=== PATIENT | female | born 1985 | race Caucasian/White ===

== ENCOUNTER 2018-01-14 08:00 | Outpatient (CLI) | payer MEDICAID | END 2018-01-14 08:01 | LOC: EDSEX 08:00 → LAB.R 08:00 | PROVIDERS: ATTEND Nurse Practitioner Obstetrics & Gynecology | DX: Z36.85 Encounter for antenatal screening for Streptococcus B (principal) | CPT/HCPCS: 87081 ==

== ENCOUNTER 2018-02-13 07:58 | Inpatient (IN) | payer MEDICAID ==
[2018-02-13] MEDS ORDERED: ONDANSETRON 4 MG/2 ML VIAL IVP PRN (08:08)
[2018-02-13] MEDS ORDERED: SODIUM CHLORIDE FLUSH 0.9% 10 ML SYRINGE IVP PRN (08:08)
[2018-02-13] MEDS ORDERED: fentaNYL 100 MCG/2 ML VIAL IVP PRN (08:08)
--- NOTE | 2018-02-13 08:33 | HISTORY & PHYSICAL EXAMINATION ---
Admit History - Instructions Nenana/Slash: -Left hand click circles element as positive or present. -Right hand click slashes element as negative or not present. - Visit Reason Visit Reason: Contractions, Membranes rupture - : 9 Parity: 8 Premature: 0 Ectopic: 0 : 0 Care: positive: [facility] Risk/History: positive: None Complications This : positive: None Smoking Status: Never smoker - Mother's Labs GBS: positive: Group B Step Negative Physical - Abdominal Exam Vital Signs: Temp Pulse Resp BP Pulse Ox 36.8 C 97 18 126/81 H 98 02/13/18 08:16 02/13/18 08:16 02/13/18 08:16 02/13/18 08:16 02/13/18 08:16 Contraction Frequency (min/apart): 2.5-4 Contraction Intensity: positive: Strong Uterine Resting Tone: positive: Soft - Monitoring Heart Rate Baseline: 130 Strip Review: positive: Category II - Presentation Presentation: positive: Vertex - Vaginal Exam Membranes: positive: Membranes ruptured Dilation (in cm): 6 Effacement (%): 90 Station: positive: 0 Cervical Position: positive: Midposition - Speculum Exam Speculum Exam Performed: positive: No Plan for Labor - Plan For Labor I expect patient to be DC'd or transferred within 96 hours.: Yes Plan for Labor: HPI: This 32yo presents with contractions beginning at 0600 02/13/2018 and SROM 0640 a moderate amount of meconium stained fluid. She reports +FM. Coping well with contractions. Dating criteria: Known LMP 12/2017 29wk U/S agrees with LMP dating OB History: She is unable to provide any detailed information about her other pregnancies other than she was 9 months and there were no complications. Labs: Limited labs CBC performed and WNL 2 hour GTT WNL U/S FAS WNL - no gross abnormalities. No previa. Meds: Daily PNV Allergies: NKDA GBS negative A: 32yo @ 40.2wks gestation by L=29 wk U/S GBS negative Limited care P: Continuous monitoring Plans unmedicated vaginal delivery Meconium stained amniotic fluid - Dr. Torres, coroner technician network systems analyst aware and made introduction to patient and . Continue expectant management Anticipate spontaneous vaginal delivery.
[2018-02-13 08:38] LABS: BASOPHILS % (AUTO) 0.3 %; EOSINOPHILS # (AUTO) 0.1 10^3/uL (0.0-0.7); EOSINOPHILS % (AUTO) 1.1 %; HGB - HEMOGLOBIN 12.4 g/dL (12.0-16.0); LYMPHOCYTES % (AUTO) 24.9 %; MEAN CORPUSCULAR HEMOGLOBIN 29.5 pg (27.0-31.0); MEAN CORPUSCULAR HGB CONC 33.7 g/dL (32.0-36.0); MEAN CORPUSCULAR VOLUME 87.7 fL (81.0-99.0); MEAN PLATELET VOLUME 9.8 fL (7.9-10.8); MONOCYTES # (AUTO) 0.4 10^3/uL (0.0-1.0); MONOCYTES % (AUTO) 5.2 %; NEUTROPHILS # (AUTO) 5.6 10^3/uL (1.5-6.6); NEUTROPHILS % (AUTO) 68.5 %; PLT - PLATELET COUNT 259 10^3/uL (130-450); RED BLOOD COUNT 4.19 10^6/uL (4.20-5.40); RED CELL DISTRIBUTION WIDTH 13.4 % (12.0-15.0); WHITE BLOOD COUNT 8.2 x10^3/uL (4.8-10.8)
[2018-02-13] MEDS: LACTATED RINGERS 1,000 ML IV ONE ×2 (08:48→09:49)
[2018-02-13] MEDS ORDERED: OXYTOCIN/SODIUM CHLORIDE 500 ML IV ONE (09:17)
[2018-02-13] MEDS ORDERED: OXYTOCIN/SODIUM CHLORIDE 250 ML IV ONE (10:14)
[2018-02-13] MEDS ORDERED: HYDROCORTISONE/PRAMOXINE 10 GM PR PRN (10:14)
[2018-02-13] MEDS ORDERED: WITCH HAZEL/GLYCERIN 1 EACH MED..PAD TOP PRN (10:14)
--- NOTE | 2018-02-13 10:19 | DELIVERY NOTE ---
Delivery Note - Labor Labor: positive: Spontaneous - Delivery Method Delivery Method: positive: Spontaneous vaginal delivery - Presentation Presentation: positive: Vertex, JAHAIRA - left occiput anterior - Nuchal Cord Nuchal Cord: positive: None - Amniotic Fluid Description Amniotic Fluid Description: positive: Moderate meconium - Episiotomy Type Episiotomy Type: positive: None - Laceration Laceration: positive: None - Delivery Outcome Delivery Outcome: positive: Livebirth - [place]: positive: Placed in direct skin contact with mother, Bulb syringe, Stimulated, [place] used [place] sex: positive: Female - Cord Cord: positive: 3 vessels - Placenta Placenta: positive: Intact, Spontaneous - Estimated Blood Loss Estimated Blood Loss (in cc): 200 - Post Delivery Events Post Delivery Events: positive: No post delivery events - Delivery Comments (Free Text/Narrative) Delivery Comments (Free Text/Narrative): Labor: This 32yo @ 40.2 wks gestation by L=29wk U/S presented at approximately 0800 in active labor. Reported contractions beginning at 2017 at 0600 followed by SROM @ 0640 a moderate amount of meconium stained fluid. Cervix was 6/90/0, vertex, soft. Gross leakage of moderate meconium- stained amniotic fluid. FHR pattern demonstrated baseline 130 in a category II pattern pattern. Recurrent early deceleration with minimal to moderate variability. Overall reassuring. Patient progressed to c/c/+1 with spontaneous urge to push at 0935. Normal labor course. : Normal of viable female . No nuchal. 's 9 and 9 at 1 and 5 minutes respectively at 0951 on 02/13/2018. The was placed on maternal abdomen, stimulated, dried, and placed skin to skin. Vigorous cry. The umbilical cord was allowed to stop pulsating at which time it was doubly clamped and cut by FOB. 3VC. Cord blood was obtained. Pitocin administered via IV for hemostasis. Placenta delivered spontaneously and intact at 0956 and was found to be morphologically intact. Trailing membranes grasped with ring forceps and gently guided through vaginal introitus. Both placenta and amniotic membranes were noted to be moderately meconium stained. EBL 200mL. Dr. Torres, personal computer specialist pediatrican present for delivery secondary to meconium. Fourth stage: Uterine fundus firm and there is no excessive bleeding. The perinuem, vagina, and cervix were inspected and found to be intact. initiated. Family bonding well. Both mother and baby were left in stable condition.
[2018-02-13] MEDS: ACETAMINOPHEN 500 MG TABLET PO SCH (10:56)
[2018-02-13] MEDS: IBUPROFEN 800 MG TABLET PO SCH (10:57)
[2018-02-13] MEDS ORDERED: LACTATED RINGERS 1,000 ML IV SCH (11:00)
[2018-02-13] MEDS: SODIUM CHLORIDE FLUSH 0.9% 10 ML SYRINGE IVP SCH (11:55)
[2018-02-14] MEDS: IBUPROFEN 800 MG TABLET PO SCH ×2 (04:07→10:51)
[2018-02-14] MEDS: ACETAMINOPHEN 500 MG TABLET PO SCH ×2 (04:08→16:49)
[2018-02-14] MEDS: SODIUM CHLORIDE FLUSH 0.9% 10 ML SYRINGE IVP SCH (04:08)
[2018-02-14] MEDS: DOCUSATE SODIUM 100 MG CAPSULE PO SCH ×2 (04:08→10:30)
[2018-02-14 13:02] LABS: HEPATITIS C ANTIBODY NON-REACTIVE (NON-REACTIVE)
--- NOTE | 2018-02-14 13:15 | Discharge Plan ---
Discharge Plan Disposition: 01 Home, Self Care Condition: Good Diet: Regular Activity Restrictions: No Restrictions Shower Restrictions: No Driving Restrictions: No Weight Bearing: Full Weight No Smoking: If you smoke, Please STOP! Call for help. Follow-up with: Stcaia Kenney CNM, ARNP [Provider Admit Priv/Credential] -
--- NOTE | 2018-02-14 13:18 | PROVIDER PROGRESS NOTE ---
Subjective - Subjective Subjective: S: Bonding well with baby. without difficulty. Reports some lower back discomfort last evening and early this morning but resolved with tylenol and ibuprofen. Bleeding minimal. supportive at the bedside. O: Heart RRR w/o M/G/R, lungs CTAB, abdomen soft and nontender with fundus firm at U-1. Bilateral LE's no edema. Perineum intact. A: 32yo -->P9 PPD#1 s/p TSVD of viable female over intact perineum P: Reviewed self care and warning s/sx. Pt will be discharged home today with Rx for 800mg ibuprofen 1 tab PO q 8 hrs PRN pain #60 with 1 refill. She plans to follow up with myself in 3 weeks at [facility] for routine visit. Pt and verbalized understanding and agree to above plan. They deny further questions or concerns at this time. Objective - Vital Signs/Intake & Output Vital Signs: Vital Signs x48h Temp Pulse Resp BP Pulse Ox 02/14/18 08:36 37.2 C 75 17 101/54 L 98 Intake & Output: Intake & Output 02/11/18 02/12/18 02/13/18 02/14/18 23:59 23:59 23:59 23:59 Intake Total 1000 Output Total 1090 Balance -90 - Lab Results Fish Bones: 02/13/18 08:08 Other Labs: Lab Results x24hrs 02/13/18 02/13/18 Range/Units 09:33 09:33 Hep Bs Immunity Index <5 L (> OR = 10) mIU/mL Hepatitis C Antibody NON-REACTIVE (NON-REACTIVE) Hep C Ab Signal/Cutoff 0.00 (<1.00)
[2018-02-14 14:31] VITALS: BP 105/52
[2018-02-14 14:32] LABS: HIV AG/AB 4TH GEN NON-REACTIVE (NON-REACTIVE)
== END 2018-02-14 16:55 | disposition home or self-care (01) | DRG 775 ==
LOC: WFO 07:58 → FBP 07:59 → WFO 08:07 → FBP 08:08 → OBS 16:18
PROVIDERS: ADMIT Nurse Practitioner Obstetrics & Gynecology; ATTEND Nurse Practitioner Obstetrics & Gynecology
PROC: 10E0XZZ Delivery of Products of Conception, External Approach (ICD-10-PCS; principal; 2018-02-13)
DX: O42.02 Full-term premature rupture of membranes, onset of labor within 24 hours of rupture (principal); O77.0 Labor and delivery complicated by meconium in amniotic fluid; Z3A.40 40 weeks gestation of pregnancy; Z37.0 Single live birth
CPT/HCPCS: 85025; 86317; 86762; 86780; 86803; 86850; 86900; 86901; 87389; 99211

== ENCOUNTER 2018-02-20 17:12 | Emergency (ER) | payer MEDICAID ==
--- NOTE | 2018-02-20 17:32 | ED Physician Documentation ---
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 She says that during the delivery she started to feel some right upper quadrant pain and swelling which is been persistent. She took the baby in for postop check today and they noted that the mom was jaundiced and she was referred here for further evaluation and treatment. She has persistent mild right upper quadrant pain and swelling. She has no history of abdominal surgeries. She denies fevers or vomiting.) Review of Systems Ten Systems: 10 systems reviewed and negative Constitutional: denies: Fever, Chills Cardiac: denies: Chest pain / pressure, Palpitations Respiratory: denies: Dyspnea, Cough PD PAST MEDICAL HISTORY - Past Medical History Past Medical History: No - Allergies Allergies/Adverse Reactions: Allergies Allergy/AdvReac Type Severity Reaction Status Date / Time No Known Drug Allergies Allergy Verified 02/20/18 17:40 - Living Situation Living Situation: reports: With family - Social History Smoking Status: Never smoker Does the pt have substance abuse?: No PD ED PE NORMAL - Vitals Vital signs reviewed: Yes - General General: Alert and oriented X 3, No acute distress - HEENT HEENT: PERRL (Quite icteric and jaundiced) - Neck Neck: Supple, no meningeal sign - Cardiac Cardiac: RRR, No murmur - Respiratory Respiratory: No respiratory distress, Clear bilaterally - Abdomen Abdomen: Normal bowel sounds, Soft, Other (Mild right upper quadrant tenderness without surgical signs) - Back Back: No CVA TTP, No spinal TTP - Derm Derm: Normal color, Warm and dry - Extremities Extremities: No edema, No calf tenderness / cord - Neuro Neuro: Alert and oriented X 3, Normal speech Results - Vitals Vitals: Vital Signs - 24 hr 02/20/18 17:19 Temperature 36.4 C L Heart Rate 78 Respiratory 16 Rate Blood Pressure 136/96 H O2 Saturation 98 Oxygen O2 Source Room air - Labs Labs: Laboratory Tests 02/20/18 02/20/18 02/20/18 17:25 17:25 17:25 WBC 7.0 RBC 4.11 L Hgb 12.2 Hct 35.8 L MCV 87.1 MCH 29.6 MCHC 33.9 RDW 15.0 Plt Count 504 H MPV 8.2 Neut # (Auto) 3.7 Lymph # (Auto) 2.4 [place] # (Auto) 0.4 Eos # (Auto) 0.4 Baso # (Auto) 0.1 Absolute Nucleated RBC 0.00 Nucleated RBC % 0.0 PT 10.7 INR 0.9 Fibrinogen 565 H Sodium 136 Potassium 3.8 Chloride 104 Carbon Dioxide 23 Anion Gap 9.0 BUN 9 Creatinine 0.3 L Estimated GFR (MDRD) 259 Glucose 100 Uric Acid 4.4 Calcium 8.4 L Total Bilirubin 7.6 H Direct Bilirubin 4.7 H Indirect Bilirubin 2.9 AST 87 H ALT 152 H Alkaline Phosphatase 827 H Lactate Dehydrogenase Total Protein 7.0 Albumin 2.8 L Globulin 4.2 Albumin/Globulin Ratio 0.7 L Lipase 18 L Acetaminophen < 10 L 02/20/18 17:25 WBC RBC Hgb Hct MCV MCH MCHC RDW Plt Count MPV Neut # (Auto) Lymph # (Auto) [place] # (Auto) Eos # (Auto) Baso # (Auto) Absolute Nucleated RBC Nucleated RBC % PT INR Fibrinogen Sodium Potassium Chloride Carbon Dioxide Anion Gap BUN Creatinine Estimated GFR (MDRD) Glucose Uric Acid Calcium Total Bilirubin Direct Bilirubin Indirect Bilirubin AST ALT Alkaline Phosphatase Lactate Dehydrogenase 177 Total Protein Albumin Globulin Albumin/Globulin Ratio Lipase Acetaminophen PD MEDICAL DECISION MAKING - ED course ED course: She says she has not been taking much Tylenol/acetaminophen, only naproxen which was prescribed to her. HELLP is considered but inconsistent with the labs. She does have evidence of cholestasis and obstruction, probably due to choledocholithiasis given 12 mm common bile duct even though this is not definitively seen on ultrasound she does have mild evidence of cholecystitis and multiple gallstones. Spoke with Dr. Davies, the surgeon here who recommended transfer given the bili that high to a facility capable of ERCP. I ordered Unasyn, she was having some itching but no overt findings of an allergic reaction, it was stopped about care home through and I ordered Rocephin instead. Note she is breast-feeding. Spoke with Dr Doan On-call GI in [place] who will consult, defers to surgery for the primary admission, they were paged at 8:[address] Carmen Lima to [facility] direct admit surgery service at 8:43 PM and cobras were completed. - Sepsis Event Vital Signs: Vital Signs - 24 hr 02/20/18 17:19 Temperature 36.4 C L Heart Rate 78 Respiratory 16 Rate Blood Pressure 136/96 H O2 Saturation 98 Oxygen O2 Source Room air Departure - Departure Disposition: 02 Transfer Acute Care Hosp Clinical Impression: Biliary obstruction, Cholecystitis Condition: Stable
[2018-02-20 17:34] LABS: BASOPHILS # (AUTO) 0.1 10^3/uL (0.0-0.1); BASOPHILS % (AUTO) 1.1 %; EOSINOPHILS # (AUTO) 0.4 10^3/uL (0.0-0.7); EOSINOPHILS % (AUTO) 5.9 %; HGB - HEMOGLOBIN 12.2 g/dL (12.0-16.0); LYMPHOCYTES # (AUTO) 2.4 10^3/uL (1.5-3.5); LYMPHOCYTES % (AUTO) 34.3 %; MEAN CORPUSCULAR HEMOGLOBIN 29.6 pg (27.0-31.0); MEAN CORPUSCULAR HGB CONC 33.9 g/dL (32.0-36.0); MEAN CORPUSCULAR VOLUME 87.1 fL (81.0-99.0); MEAN PLATELET VOLUME 8.2 fL (7.9-10.8); MONOCYTES # (AUTO) 0.4 10^3/uL (0.0-1.0); MONOCYTES % (AUTO) 5.4 %; NEUTROPHILS # (AUTO) 3.7 10^3/uL (1.5-6.6); NEUTROPHILS % (AUTO) 53.3 %; PLT - PLATELET COUNT 504 10^3/uL (130-450); RED BLOOD COUNT 4.11 10^6/uL (4.20-5.40)
[2018-02-20 17:43] LABS: INR 0.9 (0.8-1.2); PT - PROTHROMBIN TIME 10.7 secs (9.9-12.6)
[2018-02-20 17:55] LABS: ACETAMINOPHEN < 10 ug/mL (10-30); ALBUMIN 2.8 g/dL (3.2-5.5); ALBUMIN/GLOBULIN RATIO 0.7 (1.0-2.2); ALKALINE PHOSPHATASE 827 IU/L (42-121); ALT ALANINE AMINOTRANSFERASE 152 IU/L (10-60); AST ASPARTATE AMINOTRANSFERASE 87 IU/L (10-42); BILIRUBIN,DIRECT 4.7 mg/dL (0.1-0.5); BILIRUBIN,INDIRECT 2.9 mg/dL; BILIRUBIN,TOTAL 7.6 mg/dL (0.2-1.0); BUN - BLOOD UREA NITROGEN 9 mg/dL (6-20); CALCIUM 8.4 mg/dL (8.5-10.3); CARBON DIOXIDE - CO2 23 mmol/L (21-32); CHLORIDE 104 mmol/L (101-111); CREATININE 0.3 mg/dL (0.4-1.0); GFR - MDRD 259 (>89); GLUCOSE 100 mg/dL (70-100); LIPASE 18 U/L (22-51); SODIUM 136 mmol/L (135-145); URIC ACID 4.4 mg/dL (2.6-7.2)
--- NOTE | 2018-02-20 18:25 | Ultrasound Report ---
Procedure Date: 02/20/2018 Accession Number: [id number] / [id number] Procedure: US - Abdomen Limited CPT Code: FULL RESULT: EXAM: ABDOMEN ULTRASOUND LIMITED, RUQ EXAM DATE: 02/20/2018 06:15 PM. CLINICAL HISTORY: RUQ pain, jaundice. COMPARISON: None. TECHNIQUE: Real-time scanning was performed with static images obtained. FINDINGS: Liver: The liver is mildly increased in echogenicity with no focal lesions. 15.1 cm. Main portal vein flow: Hepatopetal. Gallbladder: Multiple stones in the gallbladder. The gallbladder wall is upper limits of normal in thickness measuring 3 mm. Patient is on pain medication and the presence of a sonographic Roberts sign could not be reliably assessed. Biliary System: CBD measures 12 mm. Intrahepatic and extra hepatic biliary ductal dilatation. Other: The right kidney is unremarkable. IMPRESSION: 1. Acute cholecystitis. 2. Hepatic parenchymal disease (likely fatty liver). No focal lesions. RADIA
[2018-02-20] MEDS ORDERED: AMPICILLIN/SULBACTAM 3 GM in SODIUM CHLORIDE 0.9% MINIBAG 100 ML IV STA (18:27)
[2018-02-20] MEDS ORDERED: cefTRIAXone 1 GM in SODIUM CHLORIDE 0.9% MINIBAG 100 ML IV STA (19:20)
[2018-02-20 20:45] VITALS: BP 113/78
[2018-02-20 20:49] LABS: GLUCOSE, URINE (UA) NEGATIVE (NEGATIVE); KETONES,URINE (UA) NEGATIVE (NEGATIVE); LEUKOCYTE ESTERASE, URINE MODERATE (NEGATIVE); NITRITE,URINE NEGATIVE (NEGATIVE); OCCULT BLOOD,URINE LARGE (NEGATIVE); PROTEIN,URINE NEGATIVE (NEGATIVE); UROBILINOGEN,URINE 0.2 (NORMAL) E.U./dL (NORMAL)
[2018-02-20 20:58] LABS: BILIRUBIN,URINE MODERATE (NEGATIVE); CLARITY,URINE CLEAR (CLEAR); ICTOTEST,URINE POSITIVE
[2018-02-20 20:59] LABS: SQUAMOUS EPITHELIAL CELL,UR RARE Squamous (<= Few); WBC CLUMPS,URINE PRESENT
[2018-02-20 21:00] LABS: BACTERIA,URINE Few /HPF (None Seen)
[2018-02-21 15:21] LABS: HEPATITIS A IGM NON-REACTIVE (NON-REACTIVE); HEPATITIS B CORE ANTIBODY IGM NON-REACTIVE (NON-REACTIVE); HEPATITIS B SURFACE ANTIGEN NON-REACTIVE (NON-REACTIVE); HEPATITIS C ANTIBODY NON-REACTIVE (NON-REACTIVE)
== END 2018-02-20 22:05 | disposition short-term general hospital (02) ==
LOC: ED 17:12
DX: O99.63 Diseases of the digestive system complicating the puerperium (principal); O26.63 Liver and biliary tract disorders in the puerperium; K76.89 Other specified diseases of liver; K80.01 Calculus of gallbladder with acute cholecystitis with obstruction
CPT/HCPCS: 36415; 76705; 80053; 80074; 80307; 81001; 81003; 82247; 82248; 83615; 83690; 84550; 85025; 85384; 85610; 87086; 96365; 96368; 99283; 99285

== ENCOUNTER 2018-04-17 08:27 | Outpatient (CLI) | payer MEDICAID ==
[2018-04-17 09:00] LABS: BASOPHILS # (AUTO) 0.1 10^3/uL (0.0-0.1); EOSINOPHILS # (AUTO) 0.3 10^3/uL (0.0-0.7); EOSINOPHILS % (AUTO) 5.8 %; HGB - HEMOGLOBIN 10.8 g/dL (12.0-16.0); LYMPHOCYTES # (AUTO) 1.9 10^3/uL (1.5-3.5); LYMPHOCYTES % (AUTO) 35.5 %; MEAN CORPUSCULAR HEMOGLOBIN 27.4 pg (27.0-31.0); MEAN CORPUSCULAR HGB CONC 33.9 g/dL (32.0-36.0); MEAN CORPUSCULAR VOLUME 80.7 fL (81.0-99.0); MONOCYTES # (AUTO) 0.3 10^3/uL (0.0-1.0); MONOCYTES % (AUTO) 5.2 %; NEUTROPHILS # (AUTO) 2.8 10^3/uL (1.5-6.6); NEUTROPHILS % (AUTO) 52.5 %; PLT - PLATELET COUNT 432 10^3/uL (130-450); RED BLOOD COUNT 3.94 10^6/uL (4.20-5.40); RED CELL DISTRIBUTION WIDTH 14.9 % (12.0-15.0); WHITE BLOOD COUNT 5.4 x10^3/uL (4.8-10.8)
[2018-04-17 09:19] LABS: ALBUMIN/GLOBULIN RATIO 1.1 (1.0-2.2); BILIRUBIN,TOTAL 0.6 mg/dL (0.2-1.0); CALCIUM 8.8 mg/dL (8.5-10.3); CREATININE 0.6 mg/dL (0.4-1.0); TOTAL PROTEIN 7.6 g/dL (6.7-8.2)
== END 2018-04-17 08:28 | disposition home or self-care (01) ==
LOC: LAB 08:27
PROVIDERS: ATTEND Nurse Practitioner Obstetrics & Gynecology
DX: K76.9 Liver disease, unspecified (principal); Z13.29 Encounter for screening for other suspected endocrine disorder; Z13.0 Encounter for screening for diseases of the blood and blood-forming organs and certain disorders involving the immune mechanism
CPT/HCPCS: 36415; 80053; 84443; 85025

== ENCOUNTER 2018-04-25 12:28 | Outpatient (CLI) | payer MEDICAID | END 2018-04-25 12:29 | disposition home or self-care (01) | LOC: LAB 12:28 | PROVIDERS: ATTEND Nurse Practitioner Obstetrics & Gynecology | DX: K72.00 Acute and subacute hepatic failure without coma (principal) | CPT/HCPCS: 36415; 82239 ==

== ENCOUNTER 2018-07-31 10:50 | Emergency (ER) | payer SELFPAY ==
[2018-07-31 11:38] LABS: BASOPHILS % (AUTO) 0.2 %; MEAN CORPUSCULAR HEMOGLOBIN 27.4 pg (27.0-31.0); MEAN CORPUSCULAR HGB CONC 33.4 g/dL (32.0-36.0); MEAN CORPUSCULAR VOLUME 81.9 fL (81.0-99.0); MEAN PLATELET VOLUME 8.3 fL (7.9-10.8); MONOCYTES # (AUTO) 1.2 10^3/uL (0.0-1.0); MONOCYTES % (AUTO) 6.9 %; NEUTROPHILS # (AUTO) 14.8 10^3/uL (1.5-6.6); NEUTROPHILS % (AUTO) 86.9 %; PLT - PLATELET COUNT 298 10^3/uL (130-450); RED BLOOD COUNT 4.36 10^6/uL (4.20-5.40); RED CELL DISTRIBUTION WIDTH 15.1 % (12.0-15.0)
[2018-07-31 11:49] LABS: ALBUMIN 4.1 g/dL (3.2-5.5); ALBUMIN/GLOBULIN RATIO 1.2 (1.0-2.2); BILIRUBIN,TOTAL 0.8 mg/dL (0.2-1.0); CALCIUM 8.4 mg/dL (8.5-10.3); CREATININE 0.5 mg/dL (0.4-1.0); TOTAL PROTEIN 7.6 g/dL (6.7-8.2)
[2018-07-31 12:02] LABS: BILIRUBIN,URINE NEGATIVE (NEGATIVE); GLUCOSE, URINE (UA) NEGATIVE (NEGATIVE); KETONES,URINE (UA) >=80 mg/dL (NEGATIVE); LEUKOCYTE ESTERASE, URINE NEGATIVE (NEGATIVE); NITRITE,URINE NEGATIVE (NEGATIVE); OCCULT BLOOD,URINE NEGATIVE (NEGATIVE); PROTEIN,URINE NEGATIVE (NEGATIVE); UROBILINOGEN,URINE 0.2 (NORMAL) E.U./dL (NORMAL)
[2018-07-31 12:04] LABS: CLARITY,URINE CLEAR (CLEAR)
[2018-07-31 12:05] LABS: HCG UR QUAL NEGATIVE
[2018-07-31] MEDS ORDERED: ONDANSETRON 4 MG/2 ML VIAL IVP STA (12:34)
[2018-07-31] MEDS ORDERED: SODIUM CHLORIDE 0.9% 1,000 ML IV ONE (12:34)
[2018-07-31] MEDS ORDERED: HYDROmorphone 1 MG/ML CARPUJECT IVP STA (12:34)
[2018-07-31] MEDS ORDERED: PIPERACILLIN/TAZOBACTAM 3.375 GM in SODIUM CHLORIDE 0.9% MINIBAG 100 ML IV STA (12:34)
--- NOTE | 2018-07-31 12:37 | ED Physician Documentation ---
History of Present Illness - Stated complaint Stated Complaint: ABD PX - Chief complaint Chief Complaint: Abd Pain - Additonal information Additional information: hx from pt via transloator tablet and from EMR 33 female denies preg last Feb she was seen for jaundice and had cholecholithiasis and was tranfereed to Prov and had ERCP but still has her gallbladder to ED today with 2 days of RUQ pain, chils NV no diarrhea no urinary sx Review of Systems Constitutional: denies: Fever Cardiac: denies: Chest pain / pressure Respiratory: denies: Dyspnea GI: reports: Abdominal Pain, Nausea, Vomiting. denies: Diarrhea : denies: Now EGA Musculoskeletal: denies: Back pain Endocrine: denies: Easy bruising / bleeding Immunocompromised: denies: Immunocompromised PD PAST MEDICAL HISTORY - Past Medical History Past Medical History: No Cardiovascular: None Respiratory: None HEENT: None - Past Surgical History Past Surgical History: No - Present Medications Home Medications: Ambulatory Orders Medication Instructions Recorded Confirmed Amox/Clav 875/125 [Augmentin] 1 each PO Q12H #20 tablet 07/31/18 Ibuprofen [Motrin] 400 mg PO Q6H #30 tablet 07/31/18 Ondansetron Odt [Zofran] 4 mg TL Q6H PRN #10 tablet 07/31/18 - Allergies Allergies/Adverse Reactions: Allergies Allergy/AdvReac Type Severity Reaction Status Date / Time No Known Drug Allergies Allergy Verified 07/31/18 11:12 - Social History Does the pt smoke?: No Smoking Status: Never smoker Does the pt drink ETOH?: No Does the pt have substance abuse?: No - Immunizations Immunizations are current?: No Immunizations: TDAP >10years/unknown - POLST Patient has POLST: No PD ED PE NORMAL - Vitals Vital signs reviewed: Yes - Cardiac Cardiac: RRR - Abdomen Abdomen: Soft - Derm Derm: Normal color - Neuro Neuro: Alert and oriented X 3 Results - Vitals Vitals: Vital Signs - 24 hr 07/31/18 07/31/18 07/31/18 10:59 12:10 13:11 Temperature 36.7 C 36.7 C Heart Rate 104 H 95 Respiratory 16 16 Rate Blood Pressure 106/72 103/64 110/67 O2 Saturation 99 98 96 07/31/18 07/31/18 16:11 16:27 Temperature 36.7 C 36.9 C Heart Rate 99 95 Respiratory 12 16 Rate Blood Pressure 97/58 L 91/64 O2 Saturation 97 97 Oxygen O2 Source Room air - Labs Labs: Laboratory Tests 07/31/18 07/31/18 07/31/18 11:31 11:31 11:45 WBC 17.0 H RBC 4.36 Hgb 12.0 Hct 35.8 L MCV 81.9 MCH 27.4 MCHC 33.4 RDW 15.1 H Plt Count 298 MPV 8.3 Neut # (Auto) 14.8 H Lymph # (Auto) 1.0 L [place] # (Auto) 1.2 H Eos # (Auto) 0.0 Baso # (Auto) 0.0 Absolute Nucleated RBC 0.00 Nucleated RBC % 0.0 Sodium 125 L Potassium 3.5 Chloride 93 L Carbon Dioxide 23 Anion Gap 9.0 BUN 5 L Creatinine 0.5 Estimated GFR (MDRD) 143 Glucose 114 H Calcium 8.4 L Total Bilirubin 0.8 AST 30 ALT 22 Alkaline Phosphatase 114 Total Protein 7.6 Albumin 4.1 Globulin 3.5 Albumin/Globulin Ratio 1.2 Lipase 22 Urine Color YELLOW Urine Clarity CLEAR Urine pH 6.0 Ur Specific [place] <=1.005 Urine Protein NEGATIVE Urine Glucose (UA) NEGATIVE Urine Ketones >=80 H Urine Occult Blood NEGATIVE Urine Nitrite NEGATIVE Urine Bilirubin NEGATIVE Urine Urobilinogen 0.2 (NORMAL) Ur Leukocyte Esterase NEGATIVE Ur Microscopic Review NOT INDICATED Urine Culture Comments NOT INDICATED Urine HCG, Qual 07/31/18 11:45 WBC RBC Hgb Hct MCV MCH MCHC RDW Plt Count MPV Neut # (Auto) Lymph # (Auto) [place] # (Auto) Eos # (Auto) Baso # (Auto) Absolute Nucleated RBC Nucleated RBC % Sodium Potassium Chloride Carbon Dioxide Anion Gap BUN Creatinine Estimated GFR (MDRD) Glucose Calcium Total Bilirubin AST ALT Alkaline Phosphatase Total Protein Albumin Globulin Albumin/Globulin Ratio Lipase Urine Color Urine Clarity Urine pH Ur Specific [place] <=1.005 Urine Protein Urine Glucose (UA) Urine Ketones Urine Occult Blood Urine Nitrite Urine Bilirubin Urine Urobilinogen Ur Leukocyte Esterase Ur Microscopic Review Urine Culture Comments Urine HCG, Qual NEGATIVE - Rads (name of study) ruq sono Radiology: See rad report (verbal from rad acute antonio) PD MEDICAL DECISION MAKING - ED course ED course: ruq pain X 2 days known gallstones elev WBC nl bili this time tachy sono + acute antonio gave padmajan will admit called surgeon at 1410 but pt is concerned about insurance and afrraid of surgery bith Dr Ordaz and myself spoe to her (via field technical support consultant) about surgery antibiotics and insurance also met with the financial team who reassured her there wwere insurnace options despite all our best efforts to convince her to stay for IV ab and surgery she declines she wants to go home on ab using translating service I carefully explained that she might not do well at home and that she should come back if worse in any way - that we were not mad and would welcome the chance to continue caring for her pt signed out AMA using translating service to be sure she understood risks of leaving Departure - Departure Disposition: 07 Against Medical Advice Clinical Impression: Acute cholecystitis, Hyponatremia Condition: Good Instructions: ED Gallbladder Infec Conf Follow-Up: Ruperto Ordaz MD [Provider Admit Priv/Credential] - Prescriptions: Amox/Clav 875/125 [Augmentin] 1 each PO Q12H #20 tablet Ibuprofen [Motrin] 400 mg PO Q6H #30 tablet Ondansetron Odt [Zofran] 4 mg TL Q6H PRN #10 tablet PRN Reason: Nausea / Vomiting Print Language: Swedish Comments: You have gallstones and a gallbladder infection This is a serious problem You need antibiotics And you should have surgery to remove the gallbladder Without this treatment you may get worse - may develop sepsis or have another stone in the bile duct requiring transfer to a larger hospital. The surgeon and the ER doctor and the financial team all met with you to try and help but you still wanted to go home So I have prescribed medication for pain and nausea and antibiotics. You should stay on a low fat diet. Return if worse in any way - we are always open and want to help you Forms: Activity restrictions Discharge Date/Time: 07/31/18 16:27
--- NOTE | 2018-07-31 14:01 | Ultrasound Report ---
Reason: ruq pain hx gallstones ? acute antonio Procedure Date: 07/31/2018 Accession Number: [id number] / [id number] Procedure: US - Abdomen Limited CPT Code: FULL RESULT: EXAM: ABDOMEN ULTRASOUND LIMITED, RUQ EXAM DATE: 07/31/2018 01:52 PM. CLINICAL HISTORY: Ruq pain. History of gallstones, ? acute cholecystitis. COMPARISON: Abdomen limited 02/20/2018 5:38 PM. TECHNIQUE: Real-time scanning was performed with static images obtained. FINDINGS: Liver: Relatively preserved parenchymal echotexture with interval resolution of previously seen intrahepatic biliary ductal dilation. Right lobe of the liver measures at least 15.2 cm. Main portal vein flow: Hepatopetal. Gallbladder: Despite premedication, the patient is significantly tender over the gallbladder. There is new marked gallbladder wall thickening to 0.9 cm with an irregular sonographic appearance of the gallbladder wall. Cholelithiasis is similar to prior. Biliary System: Extrahepatic bile ductal dilation persists with the common hepatic duct measuring 5 mm and the common bile duct measuring 8 mm. Other: None. IMPRESSION: Acute cholecystitis. Extrahepatic biliary ductal dilation. Previously seen intrahepatic biliary ductal dilation is resolved, presumably due to reported ERCP in the interval. WILL The above findings of acute cholecystitis were discussed with Itzel Price by Dr. Juan Francisco Zamorano at 14:00 hrs on 07/31/18.
--- NOTE | 2018-07-31 15:13 | CONSULTATION NOTE ---
Referring Provider Consult Date: 07/31/18 Chief Complaint - Chief Complaint Chief Complaint: abdominal pain History of Present Illness - History of Present Illness HPI Comment/Other: 33 yo woman presented to the ER with acute abdominal pain. She had an US positive for cholecystitis with gallstones. Her LFTs are normal. She had cholangitis with choledocholithiasis a few months ago that was treated with an ERCP. History - Past Medical History Cardiovascular: reports: None Respiratory: reports: None HEENT: reports: None MRSA Hx?: No - POLST Patient has POLST: No Meds/Allgy - Home Medications Home Medications: Ambulatory Orders Medication Instructions Recorded Confirmed No Known Home Medications 07/31/18 07/31/18 - Allergies Allergies/Adverse Reactions: Allergies Allergy/AdvReac Type Severity Reaction Status Date / Time No Known Drug Allergies Allergy Verified 07/31/18 11:12 Review of Systems - Gastrointestinal Gastrointestinal: reports: Abdominal pain Exam - Vital Signs Vital Signs: Vital Signs x48h Temp Pulse Resp BP Pulse Ox 07/31/18 13:11 110/67 96 07/31/18 12:10 36.7 C 95 16 103/64 98 07/31/18 10:59 36.7 C 104 H 16 106/72 99 - Physical Exam General Appearance: positive: No acute distress Eyes Bilateral: positive: Normal inspection ENT: positive: ENT inspection nml Neck: positive: Nml inspection Respiratory: positive: Chest non-tender Cardiovascular: positive: Regular rate & rhythm Abdomen: positive: Tenderness Back: positive: Nml inspection Skin: positive: Color nml Extremities: positive: Non-tender Neurologic/Psychiatric: positive: Oriented x3 Conclusion/Plan - Diagnosis Diagnosis: acute cholecystitis - Plan Plan: I recommended the pt have an acute cholecystectomy. The pt declined. She states she does not want surgery. We discussed this at length, with an metal can inspector, but she is adamant. I then recommended she at least be admitted on antibiotics so we can see if she improves. She declined this as well. She would like to be discharged from the ER on PO antibiotics. This is not the ideal solution, but all she is willing to have at this time. - Lab Results Fish Bones: 07/31/18 11:31 07/31/18 11:31
[2018-07-31 16:28] VITALS: BP 91/64
== END 2018-07-31 16:27 | disposition left against medical advice (07) ==
LOC: ED 10:50
DX: K81.0 Acute cholecystitis (principal); E87.1 Hypo-osmolality and hyponatremia
CPT/HCPCS: 36415; 76705; 80053; 81003; 81025; 83690; 85025; 96361; 96365; 96375; 99283; J1170; 81001; 83605; 87040; 87086

== ENCOUNTER 2019-01-02 14:22 | Emergency (ER) | payer MEDICAID ==
[2019-01-02 15:55] LABS: BILIRUBIN,URINE NEGATIVE (NEGATIVE); GLUCOSE, URINE (UA) NEGATIVE (NEGATIVE); KETONES,URINE (UA) NEGATIVE (NEGATIVE); LEUKOCYTE ESTERASE, URINE NEGATIVE (NEGATIVE); NITRITE,URINE NEGATIVE (NEGATIVE); OCCULT BLOOD,URINE NEGATIVE (NEGATIVE); PROTEIN,URINE NEGATIVE (NEGATIVE); UROBILINOGEN,URINE 0.2 (NORMAL) E.U./dL (NORMAL)
[2019-01-02 16:00] LABS: BASOPHILS % (AUTO) 0.7 %; EOSINOPHILS # (AUTO) 0.1 10^3/uL (0.0-0.7); EOSINOPHILS % (AUTO) 1.5 %; HGB - HEMOGLOBIN 11.9 g/dL (12.0-16.0); LYMPHOCYTES # (AUTO) 2.2 10^3/uL (1.5-3.5); LYMPHOCYTES % (AUTO) 32.3 %; MEAN CORPUSCULAR HEMOGLOBIN 27.7 pg (27.0-31.0); MEAN CORPUSCULAR VOLUME 84.1 fL (81.0-99.0); MEAN PLATELET VOLUME 7.4 fL (7.9-10.8); MONOCYTES # (AUTO) 0.3 10^3/uL (0.0-1.0); MONOCYTES % (AUTO) 3.8 %; NEUTROPHILS # (AUTO) 4.3 10^3/uL (1.5-6.6); NEUTROPHILS % (AUTO) 61.7 %; PLT - PLATELET COUNT 365 10^3/uL (130-450); WHITE BLOOD COUNT 6.9 x10^3/uL (4.8-10.8)
[2019-01-02 16:00] LABS: CLARITY,URINE CLEAR (CLEAR); HCG UR QUAL POSITIVE
--- NOTE | 2019-01-02 16:06 | ED Physician Documentation ---
PD HPI FEMALE - Stated complaint Stated Complaint: FEMALE - Chief complaint Chief Complaint: Abd Pain - History obtained from History obtained from: Patient - History of Present Illness Timing - onset: How many weeks ago (3) Timing - duration: Weeks (3) Timing - details: Gradual onset Pain level max: 5 Pain level max: 4 Associated symptoms: Other (lower abd pain, cramping, 3-5 minutes at a time. 4-5 times per day.) Contributing factors: Other (LMP 2 months ago). No: , control, Oral contraceptive Recently seen: Not recently seen Review of Systems Constitutional: denies: Fever, Chills GI: denies: Nausea, Vomiting : denies: Dysuria, Frequency, Hesitancy, Discharge, Vaginal bleeding Skin: denies: Rash Musculoskeletal: denies: Neck pain, Back pain Neurologic: denies: Headache PD PAST MEDICAL HISTORY - Past Medical History Cardiovascular: None Respiratory: None HEENT: None - Past Surgical History Past Surgical History: No - Present Medications Home Medications: Ambulatory Orders Medication Instructions Recorded Confirmed No Known Home Medications 01/02/19 01/02/19 - Allergies Allergies/Adverse Reactions: Allergies Allergy/AdvReac Type Severity Reaction Status Date / Time No Known Drug Allergies Allergy Verified 01/02/19 14:53 - Social History Does the pt smoke?: No Smoking Status: Never smoker Does the pt drink ETOH?: No Does the pt have substance abuse?: No - Immunizations Immunizations are current?: No Immunizations: TDAP >10years/unknown - POLST Patient has POLST: No PD ED PE NORMAL - Vitals Vital signs reviewed: Yes - General General: Alert and oriented X 3, No acute distress, Well developed/nourished - HEENT HEENT: PERRL, Moist mucous membranes - Neck Neck: Supple, no meningeal sign - Cardiac Cardiac: RRR - Respiratory Respiratory: No respiratory distress, Clear bilaterally - Abdomen Abdomen: Soft, Non tender, Non distended - Derm Derm: Warm and dry - Extremities Extremities: No edema - Neuro Neuro: Alert and oriented X 3 - Psych Psych: Normal mood, Normal affect Results - Vitals Vitals: Vital Signs - 24 hr 01/02/19 01/02/19 01/02/19 14:40 15:48 16:56 Temperature 36.3 C L 36.4 C L Heart Rate 77 70 Respiratory 16 18 16 Rate Blood Pressure 104/61 102/65 O2 Saturation 99 97 01/02/19 19:51 Temperature Heart Rate 79 Respiratory 18 Rate Blood Pressure 132/79 H O2 Saturation 99 Oxygen O2 Source Room air - Labs Labs: Laboratory Tests 01/02/19 01/02/19 01/02/19 15:00 15:53 15:53 WBC 6.9 RBC 4.30 Hgb 11.9 L Hct 36.1 L MCV 84.1 MCH 27.7 MCHC 33.0 RDW 15.0 Plt Count 365 MPV 7.4 L Neut # (Auto) 4.3 Lymph # (Auto) 2.2 [place] # (Auto) 0.3 Eos # (Auto) 0.1 Baso # (Auto) 0.0 Absolute Nucleated RBC 0.00 Nucleated RBC % 0.0 Sodium 135 Potassium 3.3 L Chloride 104 Carbon Dioxide 21 Anion Gap 10.0 BUN 9 Creatinine 0.4 Estimated GFR (MDRD) 185 Glucose 84 Calcium 8.7 Total Bilirubin 0.7 AST 18 ALT 14 Alkaline Phosphatase 78 Total Protein 7.3 Albumin 3.9 Globulin 3.4 Albumin/Globulin Ratio 1.1 Lipase 22 HCG, Quant Urine Color YELLOW Urine Clarity CLEAR Urine pH 6.0 Ur Specific [place] 1.020 Urine Protein NEGATIVE Urine Glucose (UA) NEGATIVE Urine Ketones NEGATIVE Urine Occult Blood NEGATIVE Urine Nitrite NEGATIVE Urine Bilirubin NEGATIVE Urine Urobilinogen 0.2 (NORMAL) Ur Leukocyte Esterase NEGATIVE Ur Microscopic Review NOT INDICATED Urine Culture Comments NOT INDICATED Urine HCG, Qual POSITIVE 01/02/19 15:53 WBC RBC Hgb Hct MCV MCH MCHC RDW Plt Count MPV Neut # (Auto) Lymph # (Auto) [place] # (Auto) Eos # (Auto) Baso # (Auto) Absolute Nucleated RBC Nucleated RBC % Sodium Potassium Chloride Carbon Dioxide Anion Gap BUN Creatinine Estimated GFR (MDRD) Glucose Calcium Total Bilirubin AST ALT Alkaline Phosphatase Total Protein Albumin Globulin Albumin/Globulin Ratio Lipase HCG, Quant 39967.00 Urine Color Urine Clarity Urine pH Ur Specific [place] Urine Protein Urine Glucose (UA) Urine Ketones Urine Occult Blood Urine Nitrite Urine Bilirubin Urine Urobilinogen Ur Leukocyte Esterase Ur Microscopic Review Urine Culture Comments Urine HCG, Qual - Rads (name of study) OB ultrasound Radiology: Prelim report reviewed, EMP read contemporaneously, See rad report (IUP, approximately 15 weeks. No other acute abnormalities) PD MEDICAL DECISION MAKING - ED course Complexity details: reviewed results, re-evaluated patient, considered differential, d/w patient ED course: Patient is approximately 15 weeks . We will follow-up with OB for further care. Patient counseled regarding signs and symptoms for which I believe and urgent re-evaluation would be necessary. Patient with good understanding of and agreement to plan and is comfortable going home at this time This document was made in part using voice recognition software. While efforts are made to proofread this document, sound alike and grammatical errors may occur. Departure - Departure Disposition: 01 Home, Self Care Clinical Impression: Qualifiers: Weeks of gestation: 15 weeks Qualified Code(s): Z3A.15 - 15 weeks gestation of Condition: Good Instructions: ED Care Follow-Up: your,doctor within 1 week [Other] Print Language: Citizen Of [place] Comments: You should also be starting on vitamins. You are approximately 15 weeks . You need to follow-up with an fig caprifier for further care. Return if you worsen. Discharge Date/Time: 01/02/19 19:51
[2019-01-02 16:17] LABS: ALBUMIN 3.9 g/dL (3.2-5.5); ALBUMIN/GLOBULIN RATIO 1.1 (1.0-2.2); BILIRUBIN,TOTAL 0.7 mg/dL (0.2-1.0); CALCIUM 8.7 mg/dL (8.5-10.3); CREATININE 0.4 mg/dL (0.4-1.0); TOTAL PROTEIN 7.3 g/dL (6.7-8.2)
[2019-01-02 19:52] VITALS: BP 132/79
--- NOTE | 2019-01-04 03:01 | Ultrasound Report ---
Reason: LOWER ABD PAIN + PREG Procedure Date: 01/02/2019 Accession Number: [id number] / [id number] Procedure: US - OB 14+ Weeks CPT Code: FULL RESULT: EXAM: LIMITED OBSTETRICAL ULTRASOUND EXAM DATE: 01/02/2019 05:17 PM. CLINICAL HISTORY: LOWER ABD PAIN + PREG. COMPARISON: None. TECHNIQUE: Real-time sonographic evaluation of the fetus performed by the secret code expert. Multiple event representative static images were saved for review. Additional transvaginal imaging to more accurately evaluate cervical length/placental position/etc. DATING: GENERAL EVALUATION Paul . Cardiac activity: 150 bpm. movement: Visualized. Presentation: Mobile fetus, mostly presentation was transverse. Placenta: Anterior position. Amniotic fluid: Normal. MVP 3.5 cm. Cervix: Closed. Maternal structures: Both ovaries are unremarkable and age-appropriate. No free fluid. Left fallopian tube is mildly prominent, measures 7-10 mm in AP axis however no hydrosalpinx. Finding is most likely physiological. IMPRESSION: 1. Paul live intrauterine with gestational age 15 weeks based on current ultrasound. 2. A anatomic survey ultrasound can be performed at 18-20 weeks gestational age. 3. No abnormality of maternal structures. RADIA
== END 2019-01-02 19:51 | disposition home or self-care (01) ==
LOC: ED 14:22
DX: O99.89 Other specified diseases and conditions complicating pregnancy, childbirth and the puerperium (principal); R10.30 Lower abdominal pain, unspecified; Z3A.15 15 weeks gestation of pregnancy
CPT/HCPCS: 36415; 76805; 80053; 81001; 81003; 81025; 83690; 84702; 85025; 87086; 99283

== ENCOUNTER 2019-03-20 13:59 | Outpatient (CLI) | payer MEDICAID | END 2019-03-20 23:59 | disposition home or self-care (01) | LOC: LAB.R 13:59 | PROVIDERS: ATTEND Obstetrics & Gynecology | DX: R19.7 Diarrhea, unspecified (principal) | CPT/HCPCS: 87493 ==

== ENCOUNTER 2019-03-20 14:17 | Outpatient (CLI) | payer MEDICAID ==
[2019-03-20 15:46] LABS: BASOPHILS % (AUTO) 0.4 %; EOSINOPHILS # (AUTO) 0.2 10^3/uL (0.0-0.7); EOSINOPHILS % (AUTO) 3.4 %; HGB - HEMOGLOBIN 10.7 g/dL (12.0-16.0); LYMPHOCYTES # (AUTO) 1.9 10^3/uL (1.5-3.5); LYMPHOCYTES % (AUTO) 27.9 %; MEAN CORPUSCULAR HEMOGLOBIN 29.5 pg (27.0-31.0); MEAN CORPUSCULAR VOLUME 89.3 fL (81.0-99.0); MEAN PLATELET VOLUME 9.9 fL (7.9-10.8); MONOCYTES # (AUTO) 0.3 10^3/uL (0.0-1.0); NEUTROPHILS # (AUTO) 4.3 10^3/uL (1.5-6.6); NEUTROPHILS % (AUTO) 63.9 %; PLT - PLATELET COUNT 342 10^3/uL (130-450); RED BLOOD COUNT 3.63 10^6/uL (4.20-5.40); RED CELL DISTRIBUTION WIDTH 12.6 % (12.0-15.0); WHITE BLOOD COUNT 6.7 x10^3/uL (4.8-10.8)
[2019-03-21 10:47] LABS: HIV AG/AB 4TH GEN NON-REACTIVE (NON-REACTIVE)
[2019-03-21 11:41] LABS: HEPATITIS C ANTIBODY NON-REACTIVE (NON-REACTIVE)
[2019-03-21 11:42] LABS: HEPATITIS B SURFACE ANTIGEN NON-REACTIVE (NON-REACTIVE)
[2019-03-25 13:36] LABS: HSV 1 IGG TYPE SPECIFIC AB >58.00 index; HSV 2 IGG TYPE SPECIFIC AB <0.90 index
== END 2019-03-20 14:18 | disposition home or self-care (01) ==
LOC: LAB 14:17
PROVIDERS: ATTEND Obstetrics & Gynecology
DX: Z36.89 Encounter for other specified antenatal screening (principal); R19.7 Diarrhea, unspecified
CPT/HCPCS: 36415; 81599; 82950; 85025; 86592; 86695; 86696; 86762; 86803; 86850; 86900; 86901; 87340; 87389; 87493

== ENCOUNTER 2019-03-30 07:24 | Outpatient (CLI) | payer MEDICAID ==
--- NOTE | 2019-03-30 10:26 | Ultrasound Report ---
Reason: ENCOUNTER FOR OTHER SPECIFIED SCREENING Procedure Date: 03/30/2019 Accession Number: [id number] / [id number] Procedure: US - OB Detailed Eval CPT Code: FULL RESULT: EXAM: COMPLETE OBSTETRICAL ULTRASOUND EXAM DATE: 03/30/2019 09:15 AM. CLINICAL HISTORY: anatomic survey. COMPARISON: OB FIRST TRIMESTER 01/02/2019 5:17 PM. TECHNIQUE: Real-time sonographic evaluation of the fetus performed by the urban renewal manager. Multiple outside dealer sales representative static images were saved for review. Additional transvaginal imaging to more accurately evaluate cervical length/placental position/etc. DATING: EGA 27 weeks 3 days with EDMUND 06/26/2019 based on ultrasound of 01/02/2019. EGA 26 weeks 1 day with EDMUND 07/05/2019 based on provider statement.. EGA 27 weeks 1 day with EDMUND 06/28/2019 based on the current ultrasound. GENERAL EVALUATION Paul . Cardiac activity: 139 bpm. movement: Present Presentation: Variable Placenta: Anterior position. No evidence for previa. Umbilical cord: 3 vessel cord. Central placental cord origin. Amniotic fluid: Subjectively normal. MVP 5.3 cm. BIOMETRY Bi-Parietal Diameter (BPD): 6.8 cm, 27 weeks 3 days Head Circumference (HC): 25.3 cm, 27 weeks 4 days Abdominal Circumference (AC): 22.8 cm, 27 weeks 1 day Femur Length (FL): 4.9 cm, 26 weeks 2 days Estimated Weight: 1001 g, 72nd percentile for 26 weeks 1 day. ANATOMY The intracranial structures, profile, face/nose/lips, spine, 4 chamber heart and outflow tracts, stomach, abdominal wall and cord insertion, diaphragm, kidneys, bladder, and extremities were visualized and demonstrate no abnormality. MATERNAL STRUCTURES Uterus: Unremarkable. Cervix: Long and closed. Transabdominal length 4.3 cm. Right ovary/adnexa: Unremarkable. Left ovary/adnexa: Unremarkable. Free fluid: None. IMPRESSION: 1. Paul intrauterine with gestational age 26 weeks 1 day based on provider statement and 27 weeks 3 days based on first ultrasound. 2. Estimated weight is within expected limits for assigned dating. 3. Normal anatomic survey. No anatomic abnormalities are detected at this time. RADIA
== END 2019-03-30 07:25 | disposition home or self-care (01) ==
LOC: DI 07:24
PROVIDERS: ATTEND Nurse Practitioner Obstetrics & Gynecology
DX: Z36.89 Encounter for other specified antenatal screening (principal)
CPT/HCPCS: 76811

== ENCOUNTER 2019-05-22 08:00 | Outpatient (CLI) | payer MEDICAID ==
[2019-05-22 22:03] LABS: TRICHOMONAS VAGINALIS DNA NEGATIVE (NEGATIVE)
== END 2019-05-22 23:59 | disposition home or self-care (01) ==
LOC: LAB.R 08:00
PROVIDERS: ATTEND Obstetrics & Gynecology
DX: Z36.85 Encounter for antenatal screening for Streptococcus B (principal); Z11.3 Encounter for screening for infections with a predominantly sexual mode of transmission
CPT/HCPCS: 87491; 87591; 87661; 87797

== ENCOUNTER 2019-05-28 08:00 | Outpatient (CLI) | payer MEDICAID ==
[2019-05-29 18:58] LABS: CANDIDA GROUP DNA POSITIVE (NEGATIVE); CANDIDA KRUSEI DNA NEGATIVE (NEGATIVE); TRICHOMONAS VAGINALIS DNA NEGATIVE (NEGATIVE)
== END 2019-05-28 23:59 | disposition home or self-care (01) ==
LOC: LAB.R 08:00
PROVIDERS: ATTEND Obstetrics & Gynecology
DX: L29.8 Other pruritus (principal)
CPT/HCPCS: 87661; 87801

== ENCOUNTER 2019-06-26 00:24 | Inpatient (IN) | payer MEDICAID ==
--- NOTE | 2019-06-26 06:59 | HISTORY & PHYSICAL EXAMINATION ---
Admit History - : 10 Parity: 9 Care: positive: [facility] Risk/History: positive: Other Complications This : positive: None Smoking Status: Never smoker - Mother's Labs Mother's Blood Type: positive: O Mother's RH: positive: Positive GBS: positive: Group B Step Negative Rubella Status: positive: Immune - Other Maternal History Other Maternal History: 34 yo at 40w0 with dating based on 15 weeks us who presented with painful contractions. Presented at approximately 12 am with painful contractions. No LOF/VB. Endorses FM. Observed overnight with poor progression. Noted to have recurrent lates on EFM with dating +/- 2 weeks. Reports passage of bloody fluid this am Initial RN exam indicated that cervix is too high to reach on 2 examiners. Meds/Allgy - Home Medications Home Medications: Ambulatory Orders Medication Instructions Recorded Confirmed No Known Home Medications 01/02/19 01/02/19 - Allergies Allergies/Adverse Reactions: Allergies Allergy/AdvReac Type Severity Reaction Status Date / Time No Known Drug Allergies Allergy Verified 01/02/19 14:53 Review of Systems - Other Findings Other Findings: As per HPI, remaining systems are negative Physical - Abdominal Exam Vital Signs: Temp Pulse Resp BP Pulse Ox 98.4 F 86 20 110/67 100 06/26/19 00:39 06/26/19 00:39 06/26/19 00:39 06/26/19 00:39 06/26/19 00:39 Contraction Frequency (min/apart): irregular - Monitoring Strip Review: positive: Category II - Presentation Presentation: positive: Vertex - Vaginal Exam Membranes: positive: Membranes intact Dilation (in cm): 3-4 Effacement (%): 50 Station: positive: Ballotable Cervical Position: positive: Posterior - Speculum Exam Speculum Exam Performed: positive: No Plan for Labor - Plan For Labor Plan for Labor: 34 yo at 40+0 wga, late to care with dating based on 15 week us Presented with contractions and poor labor progression. EFM overnight showed recurrent late appearing decelerations Recommended induction of labor/augmentation of labor Patient declined despite drapery counselor out of concern for risk of Offered Sloan balloon and declined Patient counseled that she is free to decline consent but it is my strong recommendation that labor be augmented/induced. Patient voiced clear understanding and declined labor intervention States sheis willing to walk on the unit under continuous monitoring Admit for extended FM and early labor Grandmultiparity--> hemorrhage kits should be readily available at delivery Consider ppx miso immediately GBS neg Cat II tracing Rh positive/Rub imm Residence Leasing Agent [id number] assisted with drapery counselor
[2019-06-26] MEDS ORDERED: ONDANSETRON 4 MG/2 ML VIAL IVP PRN (07:02)
[2019-06-26] MEDS ORDERED: SODIUM CHLORIDE FLUSH 0.9% 10 ML SYRINGE IVP PRN (07:02)
[2019-06-26] MEDS ORDERED: ACETAMINOPHEN 325 MG TABLET PO SCH (08:00)
[2019-06-26] MEDS ORDERED: LACTATED RINGERS 1,000 ML IV SCH (08:00)
[2019-06-26] MEDS ORDERED: OXYTOCIN/DEXTROSE 5 % 30 UNIT/500 ML BAG IV SCH (08:00)
[2019-06-26] MEDS ORDERED: SODIUM CHLORIDE FLUSH 0.9% 10 ML SYRINGE IVP SCH (09:00)
[2019-06-26 09:26] LABS: BASOPHILS % (AUTO) 0.6 %; EOSINOPHILS # (AUTO) 0.1 10^3/uL (0.0-0.7); HGB - HEMOGLOBIN 11.2 g/dL (12.0-16.0); LYMPHOCYTES % (AUTO) 36.5 %; MEAN CORPUSCULAR HEMOGLOBIN 27.7 pg (27.0-31.0); MEAN CORPUSCULAR HGB CONC 32.1 g/dL (32.0-36.0); MEAN CORPUSCULAR VOLUME 86.4 fL (81.0-99.0); MEAN PLATELET VOLUME 12.5 fL (7.9-10.8); MONOCYTES # (AUTO) 0.4 10^3/uL (0.0-1.0); MONOCYTES % (AUTO) 7.4 %; NEUTROPHILS # (AUTO) 2.9 10^3/uL (1.5-6.6); NEUTROPHILS % (AUTO) 53.1 %; PLT - PLATELET COUNT 234 10^3/uL (130-450); RED BLOOD COUNT 4.04 10^6/uL (4.20-5.40); RED CELL DISTRIBUTION WIDTH 13.5 % (12.0-15.0); WHITE BLOOD COUNT 5.4 x10^3/uL (4.8-10.8)
--- NOTE | 2019-06-26 12:37 | Ultrasound Report ---
Reason: possible post date gestation, uncertain dates Procedure Date: 06/26/2019 Accession Number: [id number] / [id number] Procedure: US - OB Biophysical Profile CPT Code: Final Report FULL RESULT: EXAM: BIOPHYSICAL PROFILE EXAM DATE: 06/26/2019 10:38 AM. CLINICAL HISTORY: Possible post date gestation, uncertain dates. COMPARISON: OB DETAILED EVAL 03/30/2019 7:49 AM. TECHNIQUE: Real-time sonographic evaluation of the fetus performed by the human resources safety manager. Multiple business office representative static images were saved for review. DATING: Established EGA 38 weeks 5 days with EDMUND 07/05/2019. GENERAL EVALUATION Paul . Cardiac activity: 140 bpm. movement: Visualized. Presentation: Cephalic. Placenta: Anterior position. No evidence for previa or abruption. Amniotic fluid: Normal. MARCELINO 10.5 cm. MVP 4.5 cm. BIOPHYSICAL PROFILE Breathing = 2 Movement = 2 Tone = 2 Amniotic Fluid = 2 Total 02/26 IMPRESSION: 1. Paul live intrauterine with gestational age 38 weeks 5 days based on established EDMUND. 2. Biophysical profile score 8 of 8. RADIA The above call report findings were discussed with Sriram Weiner by Dr. Kyle Maravilla at 12:35 PM on 06/26/2019.
[2019-06-26 12:41] VITALS: BP 100/60
--- NOTE | 2019-06-26 12:50 | PROVIDER PROGRESS NOTE ---
Subjective - Prog Note Date Prog Note Date: 06/26/19 Prog Note Time: 12:48 - Subjective Subjective: The patient's contractions are very irregular. They are mild at most. She is spaced out to 9 minutes or more at times. A biophysical profile was obtained which was 8 out of 8.I spoke to her about these findings through rivet driver #[id number]. Once again I offered induction at this time. The patient does not wish an induction. Objective - Vital Signs/Intake & Output Vital Signs: Vital Signs x48h Temp Pulse Resp BP Pulse Ox 06/26/19 12:40 36.4 C L 86 18 100/60 06/26/19 09:54 36.7 C 84 18 104/58 L 100 - Lab Results Fish Bones: 06/26/19 07:55 Other Labs: Lab Results x24hrs 06/26/19 Range/Units 07:55 WBC 5.4 (4.8-10.8) x10^3/uL RBC 4.04 L (4.20-5.40) 10^6/uL Hgb 11.2 L (12.0-16.0) g/dL Hct 34.9 L (37.0-47.0) % MCV 86.4 (81.0-99.0) fL MCH 27.7 (27.0-31.0) pg MCHC 32.1 (32.0-36.0) g/dL RDW 13.5 (12.0-15.0) % Plt Count 234 (130-450) 10^3/uL MPV 12.5 H (7.9-10.8) fL Neut # (Auto) 2.9 (1.5-6.6) 10^3/uL Lymph # (Auto) 2.0 (1.5-3.5) 10^3/uL [place] # (Auto) 0.4 (0.0-1.0) 10^3/uL Eos # (Auto) 0.1 (0.0-0.7) 10^3/uL Baso # (Auto) 0.0 (0.0-0.1) 10^3/uL Absolute Nucleated RBC 0.00 x10^3/uL Nucleated RBC % 0.0 /100WBC - Other Results/Comments Other Results/Comments: Cervix: The cervix is 2 to 3 cm dilated it is very posterior and high. It is soft. It is 50% effaced. The fetus is cephalic but -3 at best. Biophysical profile was read at 8 out of 8. Her monitor strip now is a category 1 strip.Membranes are still intact. Assessment/Plan - Problem List (1) Impression: Intrauterine at 40 weeks gestation False labor rule out early labor Since there has been no cervical change since his patient arrived and her monitor strip is now a category 1, her biophysical profile has been read as 8 out of 8, Her cervix remains unchanged and her contractions are mild and erratic at most, it does not seem that she is in any type of labor pattern.I again offered her an induction of labor at this time but the patient refuses. We are therefore going to discharge her at this time. She is to return to OB if signs of labor ensue. If no other signs of labor ensue she will be seen in the clinic in 3 days. Qualifiers: Weeks of gestation: 40 weeks Qualified Code(s): Z3A.40 - 40 weeks gestation of
== END 2019-06-26 15:00 | disposition home or self-care (01) | DRG 832 ==
LOC: WFO 00:24 → FBP 00:31 → WFO 07:01 → FBP 07:02
PROVIDERS: ADMIT Obstetrics & Gynecology; ATTEND Obstetrics & Gynecology
DX: O36.8330 Maternal care for abnormalities of the fetal heart rate or rhythm, third trimester, not applicable or unspecified (principal); O47.1 False labor at or after 37 completed weeks of gestation; O09.43 Supervision of pregnancy with grand multiparity, third trimester; O09.33 Supervision of pregnancy with insufficient antenatal care, third trimester; Z3A.40 40 weeks gestation of pregnancy
CPT/HCPCS: 76819; 85025; 99214

== ENCOUNTER 2019-06-26 23:02 | Inpatient (IN) | payer MEDICAID ==
[2019-06-27] MEDS ORDERED: OXYTOCIN/DEXTROSE 5 % 30 UNIT/500 ML BAG IV PRN (00:26)
[2019-06-27] MEDS ORDERED: SODIUM CHLORIDE FLUSH 0.9% 10 ML SYRINGE IVP PRN (00:26)
[2019-06-27] MEDS ORDERED: fentaNYL 100 MCG/2 ML VIAL IVP PRN (00:26)
--- NOTE | 2019-06-27 00:32 | HISTORY & PHYSICAL EXAMINATION ---
Admit History - Visit Reason Visit Reason: Contractions, Membranes rupture - : 10 Parity: 9 Complications This : positive: None Smoking Status: Never smoker - Mother's Labs Mother's Blood Type: positive: O Mother's RH: positive: Positive GBS: positive: Group B Step Negative Rubella Status: positive: Immune - Other Maternal History Other Maternal History: The patient came back tonight complaining of contractions that increased. Nursing checked her cervix initially found her to be 2 cm. Her membranes were then ruptured and clear fluid was noted the patient cervix is now 7 cm. She is being admitted in active labor.She is at 40 weeks and 1 day gestation today. She was seen earlier on complaining of contractions. She was kept all day without any cervical change. A biophysical profile done at that time was 8 out of 8. Meds/Allgy - Home Medications Home Medications: Ambulatory Orders Medication Instructions Recorded Confirmed No Known Home Medications 01/02/19 01/02/19 - Allergies Allergies/Adverse Reactions: Allergies Allergy/AdvReac Type Severity Reaction Status Date / Time No Known Drug Allergies Allergy Verified 01/02/19 14:53 Review of Systems - Constitutional Constitutional: denies: Fatigue, Fever, Chills, Malaise, Weakness - Eyes Eyes: denies: Pain, Irritation, Amaurosis, Blurred vision, Spots in vision - Ears, Nose & Throat Ears, Nose & Throat: denies: Ear pain, Hearing loss, Hearing aids, Vertigo, Nasal pain, Nosebleeds, Nasal obstruction, Dentures, Sore throat, Hoarseness, Mouth lesions - Cardiovascular Cariovascular: denies: Irregular heart rate, Palpitations, Chest pain, Edema, Lightheadedness, Syncope - Respiratory Respiratory: denies: Cough, Sputum production, Wheezing, Snoring, Hemoptysis - Gastrointestinal Gastrointestinal: denies: Abdominal pain, Abdominal distention, Constipation, Diarrhea, Black stools, Nausea, Vomiting - Genitourinary Genitourinary: denies: Dysuria, Frequency, Urgency, Hematuria, Incontinence, Flank pain - Musculoskeletal Musculoskeletal: denies: Muscle pain, Back pain, Muscle aches, Stiffness, Limited range of motion, Gout - Integumentary Integumentary: denies: Rash, Pruritis, Lesions, Dryness, Lumps, Acne, Hair changes - Neurological Neurological: denies: General weakness, Focal weakness, Headache, Dizziness, Numbness, Memory problems, Pre-existing deficit, Abnormal gait - Psychiatric Psychiatric: denies: Depression, Anxiety, Suicidal, Delusions, Hallucinations, Homicidal - Endocrine Endocrine: denies: Polyuria, Polydypsia, Polyphagia, Intolerance to cold - Hematologic/Lymphatic Hematologic/Lymphatic: denies: Anemia, Bruising, Petechiae - All Other Systems All Other Systems: denies: Reviewed and negative Physical - Abdominal Exam Vital Signs: Temp Pulse Resp BP Pulse Ox 36.7 C 22 144/64 H 06/26/19 23:40 06/26/19 23:40 06/26/19 23:40 Contraction Frequency (min/apart): 2 Contraction Intensity: positive: Strong Uterine Resting Tone: positive: Soft - Monitoring Strip Review: positive: Category II - Presentation Presentation: positive: Vertex - Vaginal Exam Membranes: positive: Membranes ruptured Station: positive: -1 - Speculum Exam Findings: positive: Gross leak Plan for Labor - Plan For Labor I expect patient to be DC'd or transferred within 96 hours.: Yes Plan for Labor: Impression: Intrauterine at 40 weeks 1 day gestation Active labor Plan: The patient has been admitted with the usual labor orders. Delivery is expected soon.We will continue to follow her closely.
[2019-06-27 00:38] LABS: RUPTURE OF MEMBRANES PLUS NEGATIVE (NEGATIVE)
[2019-06-27] MEDS ORDERED: LACTATED RINGERS 1,000 ML IV SCH (01:00)
[2019-06-27] MEDS ORDERED: SODIUM CHLORIDE FLUSH 0.9% 10 ML SYRINGE IVP SCH (01:00)
--- NOTE | 2019-06-27 01:11 | DELIVERY NOTE ---
Delivery Note - Labor Labor: positive: Spontaneous - Delivery Method Delivery Method: positive: Spontaneous vaginal delivery - Presentation Presentation: positive: Vertex, JAHAIRA - left occiput anterior - Nuchal Cord Nuchal Cord: positive: Present (X 2 Tight), Reduced - Amniotic Fluid Description Amniotic Fluid Description: positive: Light meconium - Laceration Laceration: positive: None - Delivery Outcome Delivery Outcome: positive: Livebirth - [place] : positive: Placed in direct skin contact with mother [place] sex: positive: Male : Apgars 8 & 9 - Cord Cord: positive: 3 vessels - Placenta Placenta: positive: Intact, Spontaneous - Estimated Blood Loss Estimated Blood Loss (in cc): 50 - Post Delivery Events Post Delivery Events: positive: No post delivery events - Delivery Comments (Free Text/Narrative) Delivery Comments (Free Text/Narrative): The patient reached complete with respect to cervical dilatation at approximately 0050 hours On 06/27/2019. We had the fibreglass gun hand online #[id number].There was a forewaters noted the ruptured further with light meconium noted.The patient began to push at that time. At 005 5 hoursDelivered a viable male over an intact perineum.Upon delivery the had a very tight circum-nuchal cord was noted x2. We are trying to have her stop pushing but she would not the shoulders delivered and then I was able to finally reduce the nuchal cord. The rest of the was then delivered with expulsatory efforts. The began crying lustily at that time. He was placed on the mother's chest. After 1 minute the cord was doubly clamped and divided. A sample of the cord blood was then obtained and sent for evaluation. The placenta was then delivered intact with 3 vessels at 00 59 hours.30 units Pitoci n IV drip were given at that time. The uterus was noreen down firmly. The cervix and vaginal vault were inspected and found to be intact. The is a viable male with Apgars of 8 9 at 1 and 5 minutes respectively. Both the patient and the were allowed to remain in the DRP in satisfactory condition. Estimated blood loss was only 50 mL's.
[2019-06-27] MEDS ORDERED: HYDROcod/ACETAM 5/325 MG TABLET PO PRN (01:12)
[2019-06-27] MEDS ORDERED: ONDANSETRON 4 MG/2 ML VIAL IVP PRN (01:12)
[2019-06-27] MEDS: IBUPROFEN 600 MG TABLET PO SCH ×2 (01:38→20:28)
[2019-06-27] MEDS: ACETAMINOPHEN 500 MG TABLET PO SCH ×2 (01:39→20:28)
--- NOTE | 2019-06-27 08:45 | PROVIDER PROGRESS NOTE ---
Subjective - Prog Note Date Prog Note Date: 06/27/19 Prog Note Time: 08:43 - Subjective Subjective: An interview was held with the patient today through the help of rn mental health #[id number]. The patient continues to do well. She is without complaint today. She is ambulating well and tolerating diet well. She is voiding without difficulty. She is breast-feeding without difficulty. Objective - Vital Signs/Intake & Output Vital Signs: Vital Signs x48h Temp Pulse Resp BP Pulse Ox 06/27/19 08:30 36.8 C 67 18 104/60 100 06/27/19 03:30 36.8 C 75 16 102/56 L 06/27/19 02:57 75 16 102/56 L 06/27/19 02:45 79 16 99/63 06/27/19 02:15 82 16 106/71 06/27/19 02:00 79 16 101/62 06/27/19 01:45 94 16 105/87 H 06/27/19 01:30 79 16 111/69 06/27/19 01:16 36.7 C 78 18 100/81 H Intake & Output: Intake & Output 06/24/19 06/25/19 06/26/19 06/27/19 23:59 23:59 23:59 23:59 Output Total 900 Balance -900 - Lab Results Other Labs: Lab Results x24hrs 06/27/19 Range/Units 00:10 Membranes Rupture NEGATIVE (NEGATIVE) - Other Results/Comments Other Results/Comments: Abdomen: The abdomen is soft, pliable and nontender. The uterus is firm and nontender approximately 1 to 2 fingerbreadths below the umbilicus. Assessment/Plan - Problem List (1) Normal vaginal delivery Impression: day #1: Stable Plan: As long as the patient does well today she will be able to be discharged in the a.m.She will continue with her usual care orders.
--- NOTE | 2019-06-28 09:48 | PROVIDER PROGRESS NOTE ---
Subjective - Prog Note Date Prog Note Date: 06/28/19 Prog Note Time: 09:46 - Subjective Subjective: I spoke to the patient today through physician ophthalmologist #[id number]. The patient states she is doing well. She is without any complaint today. She states that her l ochia is very light. She is breast-feeding without difficulty. She is ambulating well and tolerating diet well Objective - Vital Signs/Intake & Output Vital Signs: Vital Signs x48h Temp Pulse Resp BP Pulse Ox 06/28/19 08:24 36.9 C 75 18 88/56 L 99 06/28/19 02:00 36.8 C 78 16 98/59 L Intake & Output: Intake & Output 06/25/19 06/26/19 06/27/19 06/28/19 23:59 23:59 23:59 23:59 Intake Total 500 750 Output Total 1650 Balance -1150 750 - Other Results/Comments Other Results/Comments: Abdomen: The abdomen is soft, pliable and nontender.The uterus is firm and nontender. It is palpated 2 to 3 fingerbreadths below the umbilicus. Assessment/Plan - Problem List (1) Normal vaginal delivery Impression: day #2: Stable Plan:The patient will be discharged home. She was discharged home with both written and verbal instructions such as: 1. No lifting, tampons douching or intercourse. 2. She is to report any temperatures greater than 100.4 or heavy vaginal bleeding 3. She is to continue her vitamins and increase her fluids 4. She is to use ibuprofen 600 mg p.o. 3 times daily PRN for pain. 5. She is not to drive a car for the next 2 weeks 6. As long as she does well she will be seen in the office in 1 week for her initial visit.. She will be seen in the office in 6 weeks for her full visit.
[2019-06-28] MEDS: ACETAMINOPHEN 500 MG TABLET PO SCH ×2 (10:22→16:17)
[2019-06-28] MEDS: IBUPROFEN 600 MG TABLET PO SCH (10:22)
[2019-06-28 16:58] VITALS: BP 99/64
--- NOTE | 2019-06-28 18:39 | DISCHARGE SUMMARY ---
REVISED: THIS REPORT WAS ORIGINALLY SIGNED ON 06/28/2019 @ 2043. REPORT MOVED TO CORRECT ACCOUNT ON 07/03/2019. Physician: Sriram Weiner DO DATE OF ADMISSION: 06/26/2019 DATE OF DISCHARGE: 06/28/2019 ADMITTING DIAGNOSES: 1. Intrauterine at 40 weeks 1 day gestation. 2. Active labor. DISCHARGE DIAGNOSES: Delivery at 40 weeks 1 day gestation. PROCEDURES: Spontaneous assisted vaginal delivery. HOSPITAL COURSE: Patient was admitted to Labor and Delivery late in the evening of 06/26/2019. She came in with increasing contractions. She had been discharged earlier that day with complaint of contractions. At that point in time, they were mild and very irregular. She stated later in the afternoon, the contractions became stronger and by that evening, she came back. Her membranes ruptured after she came to the department. The fluid was clear. She then rapidly went to complete and delivered a viable male over an intact perineum. The had Apgars of 8 and 9. He delivered at 0055 hours on 06/27/2019. One is referred to the delivery note for full details. She actually recovered quite well. Later in the day on 06/27/2019, she continued to do very well. She was without complaint. Because she is [place] speaking, all encounters with her were always done with an sr account executive on the iPad and one is referred to the progress notes for their listed numbers. She, on the first day, began ambulating well and tolerating diet well. She was voiding without difficulty. She was without difficulty. Her lochia was slowing quite rapidly. Indeed, even at delivery she did not have much blood loss. By her second day, she continued to do very well. Vital signs were stable. She was afebrile. The uterus was firm, 2-3 fingerbreadths below the umbilicus. The lochia was extremely light. The patient was well and tolerating diet well. She was anxious for discharge. It was felt that the patient was very stable and could be safely discharged to home. DISCHARGE INSTRUCTIONS: The patient was discharged home with both written and verbal instructions, which included such things as: 1. She is to forego any lifting, tampons, douching or intercourse. 2. She is to report any temperatures greater than 100.4 or heavy vaginal bleeding. 3. She is to continue her vitamins and increase her fluids. 4. She is to use ibuprofen 600 mg p.o. 3 times a day p.r.n. for pain. 5. She is not to drive a car for the next 2 weeks. 6. As long as she does well, we will see her in the office in 1 week for her initial visit and in 6 weeks for her full visit. TD: 06/28/2019 09:56 REX
--- NOTE | 2019-06-28 18:45 | Labor Flowsheet ---
Labor Flowsheet Datetime Report Generated by CPN: 06/28/2019 18:45 Datetime: 06/28/2019 16:55 VITAL SIGNS NBP Sys/Susannah/Mean (mmHg): 99 : 64 : 71 Pulse: 69 COMMUNICATION LaborFlag: Labor Datetime: 06/27/2019 16:34 SpO2 (%): 99 Datetime: 06/27/2019 03:35 Membranes Ruptured Date/Time: 06/26/2019 23:10 Datetime: 06/27/2019 00:55 Stage 2 Comments: Nuchal cord x2 Datetime: 06/27/2019 00:50 VAGINAL EXAM Dilatation (cm): 10.0 Station: 2 Exam by: Dr. Weiner Vaginal Bleeding: Normal Show Patient Care Comments: Pt enccouraged into bed. Difficult to position for delivery due to ctx pain . MD direction all care via intrepreter IPAD. STAGE 2 Pushing Position: Pushing with Contractions Pushing Progress: Perineal Bulging; Pushing Effectively with Contractions Preparation for Delivery: Setup for Delivery Datetime: 06/27/2019 00:46 Frequency (min): 1-2 Duration (sec): 60-120 ASSESSMENT A Monitor Mode: External US FHR Baseline Rate : 140 FHR Baseline Changes: No Baseline Change Variability: Moderate 6-25 bpm Accelerations: None Decelerations: Variable Category: Category II Datetime: 06/27/2019 00:45 PATIENT CARE IV/Blood Work: IV Started; IV Bolus Started Datetime: 06/27/2019 00:30 UTERINE ACTIVITY Monitor Mode: External Quality: Strong Resting Tone (Palpate): Relaxed Actions for Decelerations: Sterile Vaginal Exam Effacement (%): 100 Cervix, Consistency: Soft Cervix, Position: Anterior Vaginal Exam Comments: Provider on unit
== END 2019-06-28 18:35 | disposition home or self-care (01) | DRG 807 ==
LOC: WFO 23:02 → FBP 23:04 → WFO 06-27 00:24 → FBP 06-27 00:25
PROVIDERS: ADMIT Obstetrics & Gynecology; ATTEND Obstetrics & Gynecology
PROC: 10E0XZZ Delivery of Products of Conception, External Approach (ICD-10-PCS; principal; 2019-06-27)
DX: O69.1XX0 Labor and delivery complicated by cord around neck, with compression, not applicable or unspecified (principal); Z37.0 Single live birth; O77.0 Labor and delivery complicated by meconium in amniotic fluid; Z3A.40 40 weeks gestation of pregnancy
CPT/HCPCS: 84112; 99213; A9270; J7120; 85025

== ENCOUNTER 2019-07-06 08:00 | Outpatient (CLI) | payer MEDICAID | END 2019-07-06 23:59 | disposition home or self-care (01) | LOC: LAB.R 08:00 | PROVIDERS: ATTEND Obstetrics & Gynecology | DX: N39.0 Urinary tract infection, site not specified (principal) | CPT/HCPCS: 87086 ==

== ENCOUNTER 2020-06-24 13:08 | Emergency (ER) | payer MEDICAID ==
[2020-06-24 13:29] VITALS: BP 95/79
--- NOTE | 2020-06-24 13:37 | ED Physician Documentation ---
History of Present Illness - Stated complaint Stated Complaint: TEST - Chief complaint Chief Complaint: General - History obtained from History obtained from: Patient - History of Present Illness Timing: Today Pain level max: 0 Pain level now: 0 - Additonal information Additional information: 35-year-old female, 10 para 10 presents to the emergency department with intermittent abdominal cramping for the past several months. She states she took a test 2 months ago and it was positive, but she "did not believe it". She states that she is concerned she now might be and would like a test. No vaginal bleeding or discharge. 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 Review of Systems Constitutional: denies: Fever, Chills Respiratory: denies: Cough GI: denies: Nausea, Vomiting, Diarrhea Skin: denies: Rash Musculoskeletal: denies: Neck pain, Back pain Neurologic: denies: Headache PD PAST MEDICAL HISTORY - Past Medical History Cardiovascular: None Respiratory: None HEENT: None - Past Surgical History Past Surgical History: No - Present Medications Home Medications: Ambulatory Orders Medication Instructions Recorded Confirmed Pnv No.95/Ferrous Fum/Folic AC 1 tab PO DAILY #30 tablet 06/24/20 [ Tablet] - Allergies Allergies/Adverse Reactions: Allergies Allergy/AdvReac Type Severity Reaction Status Date / Time No Known Drug Allergies Allergy Verified 06/24/20 13:29 - Social History Does the pt smoke?: No Smoking Status: Never smoker Does the pt drink ETOH?: No Does the pt have substance abuse?: No - Immunizations Immunizations are current?: No Immunizations: TDAP >10years/unknown - POLST Patient has POLST: No PD ED PE NORMAL - Vitals Vital signs reviewed: Yes - General General: Alert and oriented X 3, No acute distress - HEENT HEENT: Moist mucous membranes - Neck Neck: Supple, no meningeal sign - Cardiac Cardiac: RRR - Respiratory Respiratory: No respiratory distress, Clear bilaterally - Abdomen Abdomen: Soft, Non tender, Non distended - Back Back: No CVA TTP - Derm Derm: Warm and dry - Extremities Extremities: No edema - Neuro Neuro: Alert and oriented X 3 Results - Vitals Vitals: Vital Signs - 24 hr 06/24/20 13:15 Temperature 35.8 C L Heart Rate 78 Respiratory 16 Rate Blood Pressure 95/79 O2 Saturation 100 Oxygen O2 Source Room air PD MEDICAL DECISION MAKING - ED course Complexity details: considered differential, d/w patient ED course: Bedside ultrasound reveals an intrauterine with a heart rate of 154 bpm. Biparietal diameter is 17 weeks and 1 day. We will start her on vitamins. We will have her follow-up with obstetrics next week. Patient counseled regarding signs and symptoms for which I believe and urgent re-evaluation would be necessary. Patient with good understanding of and agreement to plan and is comfortable going home at this time This document was made in part using voice recognition software. While efforts are made to proofread this document, sound alike and grammatical errors may occur. Departure - Departure Disposition: Home, Self Care Clinical Impression: Qualifiers: Weeks of gestation: 17 weeks Qualified Code(s): Z3A.17 - 17 weeks gestation of Condition: Good Instructions: ED Care, ED Preg Established Normal Sxs Follow-Up: [facility] [Provider Group] Malia Benavidez MD [Provider Admit Priv/Credential] - Prescriptions: Pnv No.95/Ferrous Fum/Folic AC [ Tablet] 1 tab PO DAILY #30 tablet Print Language: Citizen Of [place] Comments: You need to call the obstetrics clinic on Saturday for an appointment next week. You are about 17 weeks today. Return if you worsen Voc precisa ligar para a clnica obsttrica na segunda-feira para robin consulta na prxima semana. Voc est grvida de cerca de 17 semanas hoje. Volte se voc piorar Discharge Date/Time: 06/24/20 13:55
== END 2020-06-24 13:55 | disposition home or self-care (01) ==
LOC: ED 13:08
DX: O09.42 Supervision of pregnancy with grand multiparity, second trimester (principal); Z3A.17 17 weeks gestation of pregnancy
CPT/HCPCS: 99282; 99284

== ENCOUNTER 2020-07-29 11:13 | Outpatient (CLI) | payer MEDICAID ==
[2020-07-29 12:32] LABS: BASOPHILS % (AUTO) 0.7 %; EOSINOPHILS # (AUTO) 0.1 10^3/uL (0.0-0.7); EOSINOPHILS % (AUTO) 2.1 %; HGB - HEMOGLOBIN 11.1 g/dL (12.0-16.0); LYMPHOCYTES # (AUTO) 1.7 10^3/uL (1.5-3.5); LYMPHOCYTES % (AUTO) 27.4 %; MEAN CORPUSCULAR HEMOGLOBIN 29.4 pg (27.0-31.0); MEAN CORPUSCULAR HGB CONC 33.2 g/dL (32.0-36.0); MEAN CORPUSCULAR VOLUME 88.4 fL (81.0-99.0); MEAN PLATELET VOLUME 10.3 fL (7.9-10.8); MONOCYTES # (AUTO) 0.3 10^3/uL (0.0-1.0); NEUTROPHILS # (AUTO) 3.9 10^3/uL (1.5-6.6); NEUTROPHILS % (AUTO) 64.5 %; PLT - PLATELET COUNT 324 10^3/uL (130-450); RED BLOOD COUNT 3.78 10^6/uL (4.20-5.40); RED CELL DISTRIBUTION WIDTH 12.7 % (12.0-15.0); WHITE BLOOD COUNT 6.1 x10^3/uL (4.8-10.8)
[2020-07-29 12:40] LABS: MUDS CUTOFF CONCENTRATIONS CUTOFF CONC BELOW:
[2020-07-29 12:42] LABS: AMPHETAMINE SCREEN,URINE NEGATIVE (NEGATIVE); BENZODIAZEPINES SCREEN, URINE NEGATIVE (NEGATIVE); COCAINE SCREEN URINE NEGATIVE (NEGATIVE); METHADONE SCREEN, URINE NEGATIVE (NEGATIVE); METHAMPHETAMINES SCREEN, URINE NEGATIVE (NEGATIVE); OPIATE SCREEN, URINE NEGATIVE (NEGATIVE); OXYCODONE SCREEN, URINE NEGATIVE (NEGATIVE); PROPOXYPHENE SCREEN, URINE NEGATIVE (NEGATIVE); TRICYCLIC ANTIDEPRESSANT,URINE NEGATIVE (NEGATIVE)
[2020-07-29 19:54] LABS: TRICHOMONAS VAGINALIS DNA NEGATIVE (NEGATIVE)
[2020-07-30 09:36] LABS: HIV AG/AB 4TH GEN NON-REACTIVE (NON-REACTIVE)
[2020-07-30 13:41] LABS: HEPATITIS B SURFACE ANTIGEN NON-REACTIVE (NON-REACTIVE); HEPATITIS C ANTIBODY NON-REACTIVE (NON-REACTIVE)
--- OUTSIDE RECORDS SUMMARY | 2020-08-03 01:35 | EXTERNAL MEDICAL SUMMARY RPT | Continuity of Care Document ---
:1985 Demographics Phone Unavailable Preferred Language spn Marital Status Unknown Worship Affiliation Unknown Race Unknown Ethnic Group Unknown Author Organization [place] Address [address] [phone] Phone Care Team Providers Name Role Phone Stacia CASE, Unavailable Unavailable Problems date description facility 2018-02-20 17:12 OTHER SPECIFIED DISEASES OF [facility] LIVER 2018-02-20 17:12 CALCULUS OF GALLBLADDER W ACUTE [facility] CHOLECYSTITIS W OBSTRUCTION 2018-02-20 17:12 LIVER AND BILIARY TRACT [facility] DISORDERS IN THE PUERPERIUM 2018-02-20 17:12 DISEASES OF THE DIGESTIVE [facility] SYSTEM COMPLICATING THE PUERPERIUM 2018-02-20 17:12 UNSPECIFIED ABDOMINAL PAIN [facility] 2018-04-17 08:27 LIVER DISEASE, UNSPECIFIED [facility] 2018-04-17 08:27 ENCNTR SCREEN FOR DIS OF THE [facility] BLD/BLD-FORM ORG/IMMUN MECHN 2018-04-17 08:27 [facility]NCOUNTER [facility]US[facility] DISORDER 2018-04-25 12:28 ACUTE AND SUBACUTE HEPATIC [facility] FAILURE WITHOUT COMA 2018-07-31 10:50 HYPO-OSMOLALITY AND [facility] HYPONATREMIA 2018-07-31 10:50 ACUTE CHOLECYSTITIS [facility] 2018-07-31 10:50 RIGHT LOWER QUADRANT PAIN [facility] 2018-08-27 18:24 CALCULUS OF GALLBLADDER W/O [facility] CHOLECYSTITIS W/O OBSTRUCTION 2018-08-27 18:24 EPIGASTRIC PAIN [facility] 2019-01-02 14:22 OTH DISEASES AND CONDITIONS [facility] COMPL PREG/CHLDBRTH 2019-01-02 14:22 LOWER ABDOMINAL PAIN, [facility] UNSPECIFIED 2019-01-02 14:22 15 WEEKS GESTATION OF [facility] 2019-03-20 13:59 DIARRHEA, [facility]PECIFIED [facility] 2019-03-20 14:17 [facility]HEA, [facility]PECIFIED [facility]-20 14:17 ENCOUNTER FOR OTHER SPECIFIED [facility] SCREENING 2019-03-30 07:24 ENCOUNTER FOR OTHER SPECIFIED [facility] SCREENING 2019-05-22 08:00 ENCNTR SCREEN FOR INFECTIONS W Located Within [facility] SEXL MODE OF TRANSMISS 2019-05-22 08:00 ENCOUNTER FOR [facility] SCREENING FOR STREPTOCOCCUS B 2019-05-28 08:00 OTHER PRURITUS [facility] 2019-06-26 07:02 SUPRVSN OF PREG W [facility] ANTENAT CARE, THIRD TRIMESTER 2019-06-26 07:02 SUPRVSN OF W [facility] MULTIPARITY, THIRD TRIMESTER 2019-06-26 07:02 MATERN CARE FOR ABNLT FETL HRT Located Within [facility] RATE OR RHYM, 3RD TRI, [facility] 2019-06-26 07:02 FALSE LABOR AT OR AFTER 37 [facility] COMPLETED WEEKS OF GESTATION 2019-06-26 07:02 40 WEEKS GESTATION OF [facility] 2019-06-27 00:25 LABOR AND DELIVERY COMP BY CORD [facility] AROUND NECK, W COMPRSN, [facility] 2019-06-27 00:25 LABOR AND DELIVERY COMPLICATED Located Within [facility] BY MECONIUM IN AMNIOTIC FLUID 2019-06-27 00:25 SINGLE LIVE [facility] 2019-06-27 00:25 40 WEEKS GESTATION OF [facility] 2019-07-06 08:00 URINARY TRACT INFECTION, SITE [facility] NOT SPECIFIED 2020-06-24 13:08 UNSPECIFIED ABDOMINAL PAIN [facility] 2020-06-24 13:08 SUPRVSN OF W [facility] MULTIPARITY, SECOND T 2020-06-24 13:08 SUPRVSN OF W GR[facility] MULTIPARITY, SECOND TRIMESTER 2020-06-24 13:08 17 WEEKS GESTATION OF [facility] 2020-07-28 00:00:00 Hep C AB with Reflex [facility] 2020-07-28 00:00:00 CHLAM, NEISSERIA, TRICH [facility] 2020-07-28 00:00:00 Supervision of other normal [facility] 2020-07-28 00:00:00 Screening examination for [facility] venereal disease [facility] 2020-07-28 00:00:00 ANATOMY SCAN, SINGLE [facility] FETUS [facility] 2020-07-28 00:00:00 PROFILE [facility] 2020-07-28 00:00:00 UTOX w/ Reflex Testing [facility] 2020-07-28 00:00:00 [facility]inalysis with [facility] Exam, Culture in Indicated [facility] 2020-07-28 00:00:00 CYSTIC FIBROSIS CARRIER SCREEN [facility] 2020-07-28 00:00:00 FRAGILE X [facility] 2020-07-28 00:00:00 HARMONY [facility] 2020-07-28 00:00:00 ALPHA-FETOPROTEIN (AFP); [facility] MATERNAL SERUM [facility] 2020-07-28 00:00:00 Varicella Zoster Virus (VZV) [facility] Antibody, IgG [facility] 2020-07-28 00:00:00 HIV 4TH GEN [facility] 2020-07-28 00:00:00 Encounter for screening for [facility] C[facility] infections with a predominantly RHC sexual mode of transmission 2020-07-28 00:00:00 Encounter for supervision of [facility] other normal , RHC unspecified trimester 2020-07-28 00:00:00 Encounter for other specified [facility] screening RHC 2020-07-28 00:00:00 Multigravida [facility] 2020-07-28 00:00:[address] [facility] RHC 2020-07-28 00:00:00 screening [facility] RHC 2020-07-29 11:13 ENCOUNTER FOR OTHER SPECIFIED [facility] SCREENING Allergies date description facility PRAMIPEXOLE [facility] PRAVASTATIN [facility] NO KNOWN ENVIRONMENTAL ALLERGIES [facility] No Known Drug Allergies [facility] NO KNOWN ALLERGIES [facility] OYSTER [facility] CODEINE [facility] METFORMIN [facility] Sulfa (Sulfonamide Antibiotics) [facility] No Known Drug Allergies [facility] Medications date description facility 2020-07-29 00:00:00 null [facility] RHC 2020-07-29 00:00:00 null [facility] 2020-07-29 00:00:00 [id number] 3 [facility] C[facility] RHC Procedures date description facility 2020-07-28 00:00:00 [id number] Initial Visit [facility] C[facility] (Global) RHC date description facility 2020-07-28 00:00:00 [facility] Results Social History date description facility [id number]
== END 2020-07-29 11:14 | disposition home or self-care (01) ==
LOC: LAB 11:13
PROVIDERS: ATTEND Obstetrics & Gynecology
DX: Z36.89 Encounter for other specified antenatal screening (principal)
CPT/HCPCS: 36415; 80306; 81220; 81243; 81599; 82105; 85025; 86592; 86762; 86803; 86850; 86900; 86901; 87340; 87389; 87491; 87591; 87661

== ENCOUNTER 2020-09-08 15:57 | Outpatient (CLI) | payer MEDICAID ==
--- NOTE | 2020-09-09 11:37 | Ultrasound Report ---
PROCEDURE: OB Detailed Eval INDICATIONS: SUPERVISION OF NORMAL OUTSIDE/PRIOR DATING DATA: First dating scan (date and location): 09/08/2020. Estimated date of delivery (EDMUND) from first dating scan: 12/11/2020. TECHNIQUE: Real-time scanning was performed of the fetus, with image documentation and biometric measurements. Endovaginal scanning: No COMPARISON: None FINDINGS: General: A single living intrauterine gestation is present. Presentation: Breech Placenta: Placental position is posterior, without previa. Amniotic fluid index: 18.8 cm, within normal limits for gestational age. heart rate: 149 beats per minute. Maternal cervical canal: 3.7 cm long; normal length is 2.5 cm or more. biometrics: Biparietal diameter: 26 weeks 5 days Head circumference: 26 weeks 4 days Abdominal circumference: 26 weeks 3 days Femur length: 26 weeks 4 days Estimated gestational age from initial scan: not applicable. Composite gestational age from present scan: 26 weeks 4 days Estimated weight : 948 g Measurement variability in biometric dating: +/- 10 days from 12-20 weeks gestation, +/- 2 weeks from 20-30 weeks gestation, +/- 3 weeks at 30 weeks gestation or later. Anatomic survey: Neuro: Ventricles are normal at less than 10 mm. Cisterna magna is normal at 3-11 mm. Cerebellum i s normal in size and morphology. Nuchal skin fold: Normal at less than 6 mm between 14 and 20 weeks gestational age. Face: Nose and lips, facial profile are normal. Spine: No evidence for spina bifida. Heart: 4-chambered heart and RVOT suboptimally visualized. Normal LVOT.. Diaphragm: Diaphragm is intact. Stomach: Left-sided stomach is present. Kidneys: No hydronephrosis. Normal is less than 5 mm in 2nd trimester, less than 7 mm in 3rd trimester. Cord: 3 vessel cord has orthotopic insertion. Bladder: Normal in size. Extremities: All 4 extremities are visualized. IMPRESSION: Single living IUP with mean composite gestational age of 26 weeks 4 days corresponding to ultrasound EDMUND of 12/11/2020. Four-chamber heart and RVOT not well visualized; otherwise normal anatomy. Follow-up exam recom mended.. Reviewed by: BONILLA Kohler on 09/09/2020 11:35 AM PST Approved by: Isauro Buitrago MD on 09/09/2020 11:35 AM [facility] Station ID: [id number]
== END 2020-09-08 15:58 | disposition home or self-care (01) ==
LOC: DI 15:57
PROVIDERS: ATTEND Obstetrics & Gynecology
DX: Z34.82 Encounter for supervision of other normal pregnancy, second trimester (principal)

== ENCOUNTER 2020-09-29 16:50 | Outpatient (CLI) | payer MEDICAID ==
--- NOTE | 2020-09-30 12:05 | Ultrasound Report ---
PROCEDURE: OB F/U or Repeat INDICATIONS: SUPER HIGH RISK , FOLLOWUP FAS OUTSIDE/PRIOR DATING DATA: Last menstrual period (LMP): Unknown. LMP-based estimated date of delivery (EDMUND): Not applicable. First dating scan (date and location): 09/08/2020. Estimated date of delivery (EDMUND) from first dating scan: 12/11/2020. TECHNIQUE: Real-time scanning was performed of the fetus, with image documentation and biometric measurements. Endovaginal scanning: Not performed COMPARISON: 09/08/2020 FINDINGS: General: A single living intrauterine gestation is present. Presentation: Vertex Placenta: Placental position is posterior, without previa. Amniotic fluid index: 15.4 cm, normal for gestational age. heart rate: 127 beats per minute. Maternal cervical canal: 3.5 cm long; normal length is 2.5 cm or more. Other: 4 chambered heart and cardiac outflow tracts were well seen and appear normal. Fluid-filled st omach, urinary bladder, diaphragm, and kidneys are seen.. IMPRESSION: 1. Single living intrauterine . 2. Normal 4 chambered heart and cardiac outflow tracts were seen. Reviewed by: Yamilet Dc MD on 09/30/2020 12:04 PM PST Approved by: Yamilet Dc MD on 09/30/2020 12:04 PM PST Station ID: [id number]
== END 2020-09-29 16:51 | disposition home or self-care (01) ==
LOC: DI 16:50
PROVIDERS: ATTEND Obstetrics & Gynecology
DX: O09.90 Supervision of high risk pregnancy, unspecified, unspecified trimester (principal)

== ENCOUNTER 2020-10-17 16:06 | Outpatient (CLI) | payer MEDICAID ==
[2020-10-17 16:26] LABS: HCT - HEMATOCRIT 34.5 % (37.0-47.0); HGB - HEMOGLOBIN 11.4 g/dL (12.0-16.0); MEAN CORPUSCULAR HEMOGLOBIN 28.9 pg (27.0-31.0); MEAN CORPUSCULAR VOLUME 87.6 fL (81.0-99.0); MEAN PLATELET VOLUME 11.2 fL (7.9-10.8); RED BLOOD COUNT 3.94 10^6/uL (4.20-5.40); RED CELL DISTRIBUTION WIDTH 12.2 % (12.0-15.0); WHITE BLOOD COUNT 6.1 x10^3/uL (4.8-10.8)
[2020-10-17 16:50] LABS: % IRON SATURATION 5 % (20-50); IRON 28 ug/dL (28-170); TOTAL IRON BINDING CAPACITY 577 ug/dL (250-450); TRANSFERRIN 412 mg/dL (192-382)
[2020-10-17 16:57] LABS: THYROID STIMULATING HORMONE 1.69 uIU/mL (0.34-5.60)
[2020-10-17 17:02] LABS: FERRITIN 3.4 ng/mL (11.0-306.8)
[2020-10-17 19:28] LABS: ESTIMATED AVERAGE GLUCOSE 94 mg/dL (70-100); HEMOGLOBIN A1c% 4.9 % (4.27-6.07)
== END 2020-10-17 16:07 | disposition home or self-care (01) ==
LOC: LAB 16:06
PROVIDERS: ATTEND Obstetrics & Gynecology
DX: O09.90 Supervision of high risk pregnancy, unspecified, unspecified trimester (principal); Z13.21 Encounter for screening for nutritional disorder
CPT/HCPCS: 36415; 82306; 82728; 83036; 83540; 84443; 84466; 85027

== ENCOUNTER 2020-10-18 08:07 | Outpatient (CLI) | payer MEDICAID ==
[2020-10-18] MEDS ORDERED: DEXTROSE 5%-LACTATED RINGERS 1,000 ML IV SCH (08:45)
[2020-10-18 09:27] LABS: BASOPHILS % (AUTO) 0.3 %; EOSINOPHILS % (AUTO) 0.3 %; HCT - HEMATOCRIT 31.4 % (37.0-47.0); HGB - HEMOGLOBIN 10.7 g/dL (12.0-16.0); LYMPHOCYTES # (AUTO) 0.9 10^3/uL (1.5-3.5); LYMPHOCYTES % (AUTO) 13.3 %; MEAN CORPUSCULAR HEMOGLOBIN 29.6 pg (27.0-31.0); MEAN CORPUSCULAR HGB CONC 34.1 g/dL (32.0-36.0); MEAN PLATELET VOLUME 11.7 fL (7.9-10.8); MONOCYTES # (AUTO) 0.3 10^3/uL (0.0-1.0); NEUTROPHILS # (AUTO) 5.4 10^3/uL (1.5-6.6); NEUTROPHILS % (AUTO) 81.8 %; PLT - PLATELET COUNT 223 10^3/uL (130-450); RED BLOOD COUNT 3.61 10^6/uL (4.20-5.40); RED CELL DISTRIBUTION WIDTH 12.2 % (12.0-15.0); WHITE BLOOD COUNT 6.5 x10^3/uL (4.8-10.8)
[2020-10-18 09:42] LABS: ALBUMIN 2.6 g/dL (3.2-5.5); ALBUMIN/GLOBULIN RATIO 0.8 (1.0-2.2); BILIRUBIN,TOTAL 0.3 mg/dL (0.2-1.0); CALCIUM 7.9 mg/dL (8.5-10.3); CREATININE 0.3 mg/dL (0.4-1.0); POTASSIUM 3.3 mmol/L (3.5-5.0); TOTAL PROTEIN 5.8 g/dL (6.7-8.2)
[2020-10-18] MEDS ORDERED: HYDROmorphone 1 MG/ML CARPUJECT IVP PRN (10:29)
[2020-10-18] MEDS ORDERED: ONDANSETRON 4 MG/2 ML VIAL IVP PRN (10:30)
[2020-10-18 10:33] LABS: BILIRUBIN,DIRECT 0.1 mg/dL (0.1-0.5); BILIRUBIN,INDIRECT 0.2 mg/dL; BILIRUBIN,TOTAL 0.3 mg/dL (0.2-1.0)
--- NOTE | 2020-10-18 11:08 | Ultrasound Report ---
PROCEDURE: Abdomen Limited INDICATIONS: abd pain/vomiting TECHNIQUE: Real-time scanning was performed of the abdominal and retroperitoneal organs, with image documentatio n. COMPARISON: 07/31/2018 and 08/27/2018. FINDINGS: Liver: Liver is normal in size and homogeneous in echotexture. Gallbladder: A gallbladder is not definitively visualized. Comparing to prior studies, a similar appe aring structure cannot be identified on today's examination. Previously seen findings compatible with acute cholecystitis and cholelithiasis not definitively seen and patient reports she has had no prio r surgeries. However, history is limited secondary to communication difficulties due to language diff erences. Biliary ducts: Intrahepatic bile ducts are non-dilated. Extrahepatic bile duct caliber measures 8 m m. Central hepatic ducts appear mildly prominent. No definite intraluminal filling defects. Kidneys: Right kidney is normal in size and echotexture. Right kidney measures 10.8 cm long; no evid ence for hydronephrosis or nephrolithiasis. No solid masses. Miscellaneous: Questionable small amount of free fluid in the right upper quadrant. IMPRESSION: The gallbladder was not definitively visualized and is presumably surgically absent given previous do cumentation of acute cholecystitis with presence of cholelithiasis. This may explain mild prominence of the common bile duct and central intrahepatic ducts. Possible small amount of free fluid in the ri ght upper quadrant which may be reactive in etiology. Findings were discussed with Dr. Madrigal and will await results of laboratory evaluation as well as surg ical consultation before advanced imaging is performed. Additionally, short interval repeat ultrasoun d may be performed on the basis of laboratory results and clinical evaluation. Reviewed by: Jose Avalos MD on 10/18/2020 11:05 AM PDT Approved by: Jose Avalos MD on 10/18/2020 11:05 AM PDT Station ID: [id number]
[2020-10-18] MEDS ORDERED: IRON DEXTRAN 1,500 MG in SODIUM CHLORIDE 0.9% 500 ML IV ONE (11:30)
--- NOTE | 2020-10-18 12:47 | HISTORY & PHYSICAL EXAMINATION ---
Chief Complaint - Chief Complaint Chief Complaint: epigastric pain Abdominal Pain HPI - Admitted From Admitted from: OB - History Obtained From History obtained from: Patient, Other (chart review) Exam limitations: Language barrier - History of Present Illness Severity at the worst: Moderate Pain Quality: Sharp Context-Pain started w/: Rest Timing: Abrupt onset Duration: Hours: HPI Comment/Other: She awoke 3 am with significant epigastric pain. She is feeling better and denies nausea at this time. By chart review she has history of symptomatic gallstones, past ERCP. She was seen and evaluated by surgery in 2019. Surgery was recommended. She denied surgery. She currently is 32 weeks . PMH/PSH - Past Medical History Cardiovascular: positive: None Respiratory: positive: None HEENT: positive: None MRSA Hx?: No Social & Family Hx - Social History Does the pt smoke?: No Smoking Status: Never smoker Does the pt drink ETOH?: No Does the pt have substance abuse?: No - POLST Patient has POLST: No Meds/Allgy - Home Medications Home Medications: Ambulatory Orders Medication Instructions Recorded Confirmed Pnv No.95/Ferrous Fum/Folic AC 1 tab PO DAILY #30 tablet 06/24/20 [ Tablet] - Allergies Allergies/Adverse Reactions: Allergies Allergy/AdvReac Type Severity Reaction Status Date / Time No Known Drug Allergies Allergy Verified 06/24/20 13:29 Exam - Vital Signs Reviewed Vital Signs: Yes Vital Signs: Vital Signs x48h Temp Pulse Resp BP Pulse Ox 10/18/20 08:40 37.4 C 82 18 109/67 100 - Physical Exam General Appearance: positive: No acute distress, Alert Eyes Bilateral: positive: Normal inspection, PERRL, EOMI, No scleral icterus Respiratory: positive: No respiratory distress Abdomen: positive: Non-tender, No distention, Other (32 weeks ) Results - Lab Results Fish Bones: 10/18/20 09:15 10/18/20 09:15 Other Lab Results: Lab Results x24hrs 10/18/20 10/18/20 10/18/20 Range/Units 09:15 09:15 09:15 WBC 6.5 (4.8-10.8) x10^3/uL RBC 3.61 L (4.20-5.40) 10^6/uL Hgb 10.7 L (12.0-16.0) g/dL Hct 31.4 L (37.0-47.0) % MCV 87.0 (81.0-99.0) fL MCH 29.6 (27.0-31.0) pg MCHC 34.1 (32.0-36.0) g/dL RDW 12.2 (12.0-15.0) % Plt Count 223 (130-450) 10^3/uL MPV 11.7 H (7.9-10.8) fL Neut # (Auto) 5.4 (1.5-6.6) 10^3/uL Lymph # (Auto) 0.9 L (1.5-3.5) 10^3/uL [place] # (Auto) 0.3 (0.0-1.0) 10^3/uL Eos # (Auto) 0.0 (0.0-0.7) 10^3/uL Baso # (Auto) 0.0 (0.0-0.1) 10^3/uL Absolute Nucleated RBC 0.00 x10^3/uL Nucleated RBC % 0.0 /100WBC Sodium 136 (135-145) mmol/L Potassium 3.3 L (3.5-5.0) mmol/L Chloride 110 (101-111) mmol/L Carbon Dioxide 17 L (21-32) mmol/L Anion Gap 9.0 (6-13) BUN 7 (6-20) mg/dL Creatinine 0.3 L (0.4-1.0) mg/dL Estimated GFR (MDRD) 255 (>89) Glucose 94 (70-100) mg/dL Calcium 7.9 L (8.5-10.3) mg/dL Total Bilirubin 0.3 0.3 (0.2-1.0) mg/dL Direct Bilirubin 0.1 (0.1-0.5) mg/dL Indirect Bilirubin 0.2 mg/dL AST 19 (10-42) IU/L ALT 13 (10-60) IU/L Alkaline Phosphatase 119 (42-121) IU/L Total Protein 5.8 L (6.7-8.2) g/dL Albumin 2.6 L (3.2-5.5) g/dL Globulin 3.2 (2.1-4.2) g/dL Albumin/Globulin Ratio 0.8 L (1.0-2.2) Amylase 98 (28-100) U/L Lipase 22 (22-51) U/L - Diagnostic Imaging Results Diagnostic Imaging Results Comments: numerous gallstones present with shadowing past gallbladder wall thickening in 2019 Impression/Plan - Problem List Problem List: Chronic cholecystitis and significant biliary cholic last pm. She is feeling better. Recommend low fat diet. Antibiotics not necessary. Home when tolerating clears well. Follow up with surgery after and as needed for recurrent biliary cholic
[2020-10-18 15:42] LABS: BILIRUBIN,URINE NEGATIVE (NEGATIVE); GLUCOSE, URINE (UA) NEGATIVE (NEGATIVE); KETONES,URINE (UA) 15 mg/dL (NEGATIVE); LEUKOCYTE ESTERASE, URINE NEGATIVE (NEGATIVE); NITRITE,URINE NEGATIVE (NEGATIVE); OCCULT BLOOD,URINE NEGATIVE (NEGATIVE); PH,URINE 6.5 PH (5.0-7.5); PROTEIN,URINE NEGATIVE (NEGATIVE); UROBILINOGEN,URINE 0.2 (NORMAL) E.U./dL (NORMAL)
[2020-10-18 15:46] LABS: CLARITY,URINE CLEAR (CLEAR)
[2020-10-18 15:51] LABS: BACTERIA,URINE Rare /HPF (None Seen); RBC,URINE 0-5 /HPF (0-5); SQUAMOUS EPITHELIAL CELL,UR FEW Squamous (<= Few); WBC,URINE 0-3 /HPF (0-5)
[2020-10-18 16:31] VITALS: BP 102/66
--- NOTE | 2020-11-09 10:37 | PROCEDURE REPORT ---
- HPI Diagnosis/Indication for NST: Other (CHOLILITHISIS) Current EDU 12/11/20 Gestation 32 Weeks and 2 Days 11 Para 10 Vital Signs Temperature 37.4 C 10/18/20 08:40 Heart Rate 82 10/18/20 08:40 Respiratory Rate 18 10/18/20 08:40 Blood Pressure 109/67 10/18/20 08:40 O2 Saturation 100 10/18/20 08:40 Temperature 37.2 C 10/18/20 13:00 Heart Rate 84 10/18/20 13:00 Respiratory Rate 18 10/18/20 13:00 Blood Pressure 102/66 10/18/20 13:00 O2 Saturation 100 10/18/20 13:00 - Results and Plan Findings/Impression: STRIP ACCEPTABLE FOR EGA Plan: FOLLOWUP I THE CLINIC
--- NOTE | 2020-11-09 10:43 | PREOP HISTORY & PHYSICAL ---
DATE OF SERVICE: 10/18/2020 Physician: Omar Madrigal MD IDENTIFICATION: The patient is a 35-year-old G11, P10 female whose EDC is 12/11, making her 32 weeks 1 day. CHIEF COMPLAINT: Right upper quadrant pain. HISTORY OF PRESENT ILLNESS: The patient awoke at roughly 3:00 in the morning complaining of right up per quadrant abdominal pain. She is known to have gallstones in the past. She states over time this resolved. She had an ultrasound performed, which showed a gallbladder was not definitely visualized . There was mild prominence of the common bile duct, a possible small amount of free fluid in the up per abdomen. She does have a history of having cholelithiasis in the past. She was recommended to h ave the gallbladder out, but declined this. Her laboratories showed normal bilirubin, normal liver f unction tests, amylase and lipase were both normal, her white count was not elevated, and her symptom s were resolving over time. PAST MEDICAL HISTORY: Positive for cholelithiasis. SURGICAL HISTORY: None. ALLERGIES: NONE KNOWN. CURRENT MEDICATIONS: Vitamin C, iron, vitamin D, calcium. OBSTETRICAL HISTORY: Positive for 11 pregnancies, 10 vaginal births. She is noted to be O positive. She is rubella immune. The 50-gram Glucola was 97. PHYSICAL EXAM: GENERAL: A well-developed, well-nourished female in no acute distress. ABDOMEN: She shows tenderness in the right upper quadrant. She has normal bowel sounds. Her heart tones are noted to be within normal limits. IMPRESSION: A 35-year-old 11, para 10 female at 32 weeks with known cholelithiasis and decre asing symptoms. PLAN: At this point, we will have patient monitor her diet and avoid fatty foods. We will recommend that she have a laparoscopic cholecystectomy following the of her child, as there is no sign o f acute cholecystitis at this time. TD: 11/09/2020 10:42
== END 2020-10-18 16:20 | disposition home or self-care (01) ==
LOC: WFO 08:07 → FBP 08:10 → WFO 16:20
PROVIDERS: ATTEND Obstetrics & Gynecology
DX: O99.613 Diseases of the digestive system complicating pregnancy, third trimester (principal); K80.10 Calculus of gallbladder with chronic cholecystitis without obstruction; Z3A.32 32 weeks gestation of pregnancy
CPT/HCPCS: 76705; 80053; 81001; 82150; 82247; 82248; 83690; 85025; 96374; 96375; 99213; J1170; J1750; 87086

== ENCOUNTER 2020-11-21 08:00 | Outpatient (CLI) | payer MEDICAID ==
[2020-11-22 21:27] LABS: CHLAMYDIA TRACHOMATIS DNA NEGATIVE (NEGATIVE); NEISSERIA GONORRHOEAE DNA NEGATIVE (NEGATIVE); TRICHOMONAS VAGINALIS DNA NEGATIVE (NEGATIVE)
== END 2020-11-21 23:59 | disposition home or self-care (01) ==
LOC: LAB.R 08:00
PROVIDERS: ATTEND Obstetrics & Gynecology
DX: O09.90 Supervision of high risk pregnancy, unspecified, unspecified trimester (principal); Z36.85 Encounter for antenatal screening for Streptococcus B
CPT/HCPCS: 87491; 87591; 87661; 87797

== ENCOUNTER 2020-12-15 16:44 | Outpatient (CLI) | payer MEDICAID ==
[2020-12-15 17:33] LABS: RUPTURE OF MEMBRANES PLUS NEGATIVE (NEGATIVE)
--- NOTE | 2020-12-18 18:23 | PROVIDER PROGRESS NOTE ---
- HPI Chief Complaint: Leakage of vaginal fluid Current : Current EDU 12/11/20 Gestation 40 Weeks and 4 Days 11 Para 10 - Exam GEN: NAD HEENT: NCAT CV: RR RESP: nl effort ABD: gravid, S&NT, FH appropriate for age SVE: 2/long/high/posterior. Watery discharge - Procedures OB Procedure Performed: NST NST Procedure: NST Procedure Start Date 12/15/20 Start Time 17:02 Stop Time 17:22 Vibroacoustic Stimulation Used No Patient States Movement Yes EFM 135 mod doroteo 15x15 accels no decels TOCO: irreg Service Date of procedure: 12/15/20 - Plan Plan: 35 yo at 40+4 wga here for assessment of LOF ROM+ neg Cat I tracing DC to home with warning signs reviewed DX: IUP at 40+4 Grand multiparity False labor
== END 2020-12-15 17:49 | disposition home or self-care (01) ==
LOC: WFO 16:44 → FBP 16:46 → WFO 17:49
PROVIDERS: ATTEND Obstetrics & Gynecology
DX: O47.1 False labor at or after 37 completed weeks of gestation (principal); Z3A.40 40 weeks gestation of pregnancy; O09.43 Supervision of pregnancy with grand multiparity, third trimester
CPT/HCPCS: 59025; 84112; 99213

== ENCOUNTER 2020-12-16 06:32 | Inpatient (IN) | payer MEDICAID ==
[2020-12-16] MEDS ORDERED: LACTATED RINGERS 1,000 ML IV ONE (07:28)
[2020-12-16] MEDS ORDERED: CARBOPROST TROMETHAMINE 250 MCG/ML AMP IM PRN (07:28)
[2020-12-16] MEDS ORDERED: METHYLERGONOVINE 0.2 MG/ML VIAL IM PRN (07:28)
[2020-12-16] MEDS ORDERED: OXYTOCIN/SODIUM CHLORIDE 500 ML IV PRN (07:28)
[2020-12-16] MEDS ORDERED: AMPICILLIN 2 GM in SODIUM CHLORIDE 0.9% MINIBAG 100 ML IV ONE (07:28)
[2020-12-16] MEDS ORDERED: ONDANSETRON 4 MG/2 ML VIAL IVP PRN (07:28)
[2020-12-16] MEDS ORDERED: fentaNYL 100 MCG/2 ML VIAL IVP PRN (07:28)
[2020-12-16] MEDS ORDERED: TRANEXAMIC ACID IN NACL 1,000 MG/100 ML BAG IV PRN (07:28)
[2020-12-16] MEDS ORDERED: miSOPROStoL 200 MCG TABLET BC PRN (07:28)
[2020-12-16] MEDS ORDERED: OXYTOCIN 10 UNIT/ML VIAL IM PRN (07:28)
[2020-12-16] MEDS ORDERED: SODIUM CHLORIDE FLUSH 0.9% 10 ML SYRINGE IVP PRN ×2 (07:28→19:24)
[2020-12-16] MEDS ORDERED: LIDOCAINE-MPF 1% 30 ML VIAL ID PRN (07:28)
--- NOTE | 2020-12-16 07:35 | HISTORY & PHYSICAL EXAMINATION ---
Admit History - Visit Reason Visit Reason: Contractions (q2-3 min strong) - : 11 Parity: 10 Premature: 0 Ectopic: 0 : 0 Care: positive: [facility] Risk/History: positive: None, High risk (grand multip) Complications This : positive: None Smoking Status: Never smoker - Mother's Labs Mother's Blood Type: positive: O Mother's RH: positive: Positive GBS: positive: Group B Strep Positive Rubella Status: positive: Immune Meds/Allgy - Home Medications Home Medications: Ambulatory Orders Medication Instructions Recorded Confirmed Pnv No.95/Ferrous Fum/Folic AC 1 tab PO DAILY #30 tablet 06/24/20 [ Tablet] - Allergies Allergies/Adverse Reactions: Allergies Allergy/AdvReac Type Severity Reaction Status Date / Time No Known Drug Allergies Allergy Verified 06/24/20 13:29 Physical - Abdominal Exam Contraction Frequency (min/apart): 2-3 Contraction Intensity: positive: Moderate to strong Uterine Resting Tone: positive: Soft - Monitoring Strip Review: positive: Category I - Presentation Presentation: positive: Vertex - Vaginal Exam Membranes: positive: Membranes intact Dilation (in cm): 6 cm Station: positive: -1 Cervical Position: positive: Posterior - Speculum Exam Speculum Exam Performed: positive: No - Other Notes Labor Progress Note/Additional Text: 35 years of age. HEENT pupils are equal round extraocular muscles intactPatient is a Georgian-speaking female of thyroid not palpably enlarged heart regular rate and rhythm without murmurs lung lopez are clear without rales or wheezes back no spinal CVA tenderness noted abdomen is soft gravid she is having intermittent contractions. 35-year-old grand multipara at 4 cm history of rapid labors at this point she is nontransferable. She is group B strep positive we will give ampicillin will try to give second dose in however as I am not convinced this will occur. Because of her grand multiparity we are concerned about hemorrhage. We will have Methergine Hemabate as well as Cytotec in the room.
[2020-12-16] MEDS: LACTATED RINGERS 1,000 ML IV SCH ×4 (07:45→23:40)
[2020-12-16 07:48] LABS: BASOPHILS % (AUTO) 0.3 %; EOSINOPHILS # (AUTO) 0.2 10^3/uL (0.0-0.7); EOSINOPHILS % (AUTO) 2.2 %; HCT - HEMATOCRIT 37.6 % (37.0-47.0); HGB - HEMOGLOBIN 12.8 g/dL (12.0-16.0); LYMPHOCYTES # (AUTO) 1.8 10^3/uL (1.5-3.5); LYMPHOCYTES % (AUTO) 25.4 %; MEAN CORPUSCULAR HEMOGLOBIN 30.3 pg (27.0-31.0); MEAN CORPUSCULAR VOLUME 89.1 fL (81.0-99.0); MEAN PLATELET VOLUME 11.6 fL (7.9-10.8); MONOCYTES # (AUTO) 0.4 10^3/uL (0.0-1.0); MONOCYTES % (AUTO) 5.4 %; NEUTROPHILS # (AUTO) 4.7 10^3/uL (1.5-6.6); NEUTROPHILS % (AUTO) 66.1 %; PLT - PLATELET COUNT 220 10^3/uL (130-450); RED BLOOD COUNT 4.22 10^6/uL (4.20-5.40); RED CELL DISTRIBUTION WIDTH 13.8 % (12.0-15.0); WHITE BLOOD COUNT 7.2 x10^3/uL (4.8-10.8)
[2020-12-16] MEDS ORDERED: ACETAMINOPHEN 325 MG TABLET PO SCH (08:00)
[2020-12-16] MEDS ORDERED: SODIUM CHLORIDE FLUSH 0.9% 10 ML SYRINGE IVP SCH (09:00)
[2020-12-16] MEDS: AMPICILLIN 1 GM in SODIUM CHLORIDE 0.9% MINIBAG 100 ML IV SCH ×2 (11:28→16:17)
--- NOTE | 2020-12-16 16:23 | PROVIDER PROGRESS NOTE ---
Subjective - Prog Note Date Prog Note Date: 12/16/20 Prog Note Time: 16:21 - Subjective Subjective: Patient has shown slow progress with her labor. She reports having some pinaful contractions and others that are not as painful. Reported to be 6 cm at last exam. SVE 3-4/long/soft/posterior Head is not well applied and cervix is very posterior Cat II tracing with mild to moderate varaibility. No accels or decels Placing patient in high throne position for 30 minutes. Will start pitocin after 30-60 minutes without change. Objective - Vital Signs/Intake & Output Intake & Output: Intake & Output 12/13/20 12/14/20 12/15/20 12/16/20 23:59 23:59 23:59 23:59 Intake Total 1100 Balance 1100 - Lab Results Fish Bones: 12/16/20 07:35 Other Labs: Lab Results x24hrs 12/16/20 12/16/20 Range/Units 07:35 07:35 WBC 7.2 (4.8-10.8) x10^3/uL RBC 4.22 (4.20-5.40) 10^6/uL Hgb 12.8 (12.0-16.0) g/dL Hct 37.6 (37.0-47.0) % MCV 89.1 (81.0-99.0) fL MCH 30.3 (27.0-31.0) pg MCHC 34.0 (32.0-36.0) g/dL RDW 13.8 (12.0-15.0) % Plt Count 220 (130-450) 10^3/uL MPV 11.6 H (7.9-10.8) fL Neut # (Auto) 4.7 (1.5-6.6) 10^3/uL Lymph # (Auto) 1.8 (1.5-3.5) 10^3/uL [place] # (Auto) 0.4 (0.0-1.0) 10^3/uL Eos # (Auto) 0.2 (0.0-0.7) 10^3/uL Baso # (Auto) 0.0 (0.0-0.1) 10^3/uL Absolute Nucleated RBC 0.00 x10^3/uL Nucleated RBC % 0.0 /100WBC Blood Type O POSITIVE Antibody Screen NEGATIVE Crossmatch IS Only See Detail
--- NOTE | 2020-12-16 19:24 | PROVIDER PROGRESS NOTE ---
Subjective - Prog Note Date Prog Note Date: 12/16/20 Prog Note Time: 19:22 - Subjective Subjective: Patient feeling more pressure. SVE 6/50/-3/posterior/soft No significant change from prior exams as reported by Dr. Madrigal. Has been reuptured for about 10 hours. With assistance of telephonic food service ambassador, explained use of pitocin and patient agreed to augmention. EFM 135 mild/mid variability + accels occ decels TOCO: Q6-7 min Cat I tracign with periods of Cat II Starting pitocin for augmentation GBS postive on ampicillin Objective - Vital Signs/Intake & Output Intake & Output: Intake & Output 12/13/20 12/14/20 12/15/20 12/16/20 23:59 23:59 23:59 23:59 Intake Total 1100 Balance 1100 - Lab Results Fish Bones: 12/16/20 07:35 Other Labs: Lab Results x24hrs 12/16/20 12/16/20 Range/Units 07:35 07:35 WBC 7.2 (4.8-10.8) x10^3/uL RBC 4.22 (4.20-5.40) 10^6/uL Hgb 12.8 (12.0-16.0) g/dL Hct 37.6 (37.0-47.0) % MCV 89.1 (81.0-99.0) fL MCH 30.3 (27.0-31.0) pg MCHC 34.0 (32.0-36.0) g/dL RDW 13.8 (12.0-15.0) % Plt Count 220 (130-450) 10^3/uL MPV 11.6 H (7.9-10.8) fL Neut # (Auto) 4.7 (1.5-6.6) 10^3/uL Lymph # (Auto) 1.8 (1.5-3.5) 10^3/uL [place] # (Auto) 0.4 (0.0-1.0) 10^3/uL Eos # (Auto) 0.2 (0.0-0.7) 10^3/uL Baso # (Auto) 0.0 (0.0-0.1) 10^3/uL Absolute Nucleated RBC 0.00 x10^3/uL Nucleated RBC % 0.0 /100WBC Blood Type O POSITIVE Antibody Screen NEGATIVE Crossmatch IS Only See Detail
[2020-12-16] MEDS ORDERED: OXYTOCIN/SODIUM CHLORIDE 500 ML IV SCH (20:00)
[2020-12-17] MEDS: AMPICILLIN 1 GM in SODIUM CHLORIDE 0.9% MINIBAG 100 ML IV SCH (00:13)
--- NOTE | 2020-12-17 00:38 | PROVIDER PROGRESS NOTE ---
Subjective - Prog Note Date Prog Note Date: 12/17/20 Prog Note Time: 23:40 - Subjective Subjective: Patient requesting exam. Feeling lots of discomfort and wants to push as a release. SVE /-2 but head better applied/ Positive scalp stim on exam Will start nitrous Pit at 2 mU/min Objective - Vital Signs/Intake & Output Intake & Output: Intake & Output 12/14/20 12/15/20 12/16/20 12/17/20 23:59 23:59 23:59 23:59 Intake Total 2202.5 Balance 2202.5 - Lab Results Fish Bones: 12/16/20 07:35 Other Labs: Lab Results x24hrs 12/16/20 12/16/20 Range/Units 07:35 07:35 WBC 7.2 (4.8-10.8) x10^3/uL RBC 4.22 (4.20-5.40) 10^6/uL Hgb 12.8 (12.0-16.0) g/dL Hct 37.6 (37.0-47.0) % MCV 89.1 (81.0-99.0) fL MCH 30.3 (27.0-31.0) pg MCHC 34.0 (32.0-36.0) g/dL RDW 13.8 (12.0-15.0) % Plt Count 220 (130-450) 10^3/uL MPV 11.6 H (7.9-10.8) fL Neut # (Auto) 4.7 (1.5-6.6) 10^3/uL Lymph # (Auto) 1.8 (1.5-3.5) 10^3/uL [place] # (Auto) 0.4 (0.0-1.0) 10^3/uL Eos # (Auto) 0.2 (0.0-0.7) 10^3/uL Baso # (Auto) 0.0 (0.0-0.1) 10^3/uL Absolute Nucleated RBC 0.00 x10^3/uL Nucleated RBC % 0.0 /100WBC Blood Type O POSITIVE Antibody Screen NEGATIVE Crossmatch IS Only See Detail
[2020-12-17] MEDS ORDERED: SODIUM CHLORIDE FLUSH 0.9% 10 ML SYRINGE IVP SCH (01:00)
[2020-12-17] MEDS ORDERED: HYDROCORTISONE 1% CREAM 28 GM TUBE PR PRN (03:48)
[2020-12-17] MEDS ORDERED: SIMETHICONE CHEW 80 MG TABLET PO PRN (03:48)
[2020-12-17] MEDS ORDERED: ONDANSETRON ODT 4 MG TABLET TL PRN (03:48)
--- NOTE | 2020-12-17 03:51 | DELIVERY NOTE ---
Delivery Note - Labor Labor: positive: Augmented by oxytocin - Delivery Method Delivery Method: positive: Spontaneous vaginal delivery - Presentation Presentation: positive: Vertex, SHERON - right occiput anterior - Nuchal Cord Nuchal Cord: positive: Present, Reduced - Amniotic Fluid Description Amniotic Fluid Description: positive: Moderate meconium - Episiotomy Type Episiotomy Type: positive: None - Laceration Laceration: positive: 1st degree - Suture Suture Type: positive: Vicryl Suture Size: positive: 3-0 - Delivery Outcome Delivery Outcome: positive: Livebirth - : positive: Stimulated, Warmed, Warmer used sex: positive: Female - Cord Cord: positive: 3 vessels - Placenta Placenta: positive: Intact, Expressed - Estimated Blood Loss Estimated Blood Loss (in cc): 100 - Delivery Comments (Free Text/Narrative) Delivery Comments (Free Text/Narrative): STAGE I: Patient is a 35 yo who presented at 40+5 days ega in early labor on 12/16/20. Initial exam at 7:14 was 5/60/-1 station. She underwent spontaneous rupture of membranes at 10:04 with light meconium noted. GBS positive and received ampicillin for prophylaxis. Labor progress slowed and pitocin augmentation was initiated with max dose of 4 mU/min. Nitrous oxide for pain management. Cat I with periods of Cat II tracing throughout Stage I labor. Patient was completely dilated at 2:57 am on 12/17/20. STAGE II: Patient pushed well for 16 minuted to deliver a viable female from vertex and JAHAIRA position. There was a 90 second shoulder dystocia relieved with Travis and delivery of the posterior arm. A tight nuchal cord was noted and reduced over head. was delivered to maternal chest, cord was clamped x2 without delay, and was brought over to the warmer to the Pediatric provider. Apgars were 7/9. Weight pending. STAGE III: Placenta delivered shortly after delivery of the with manual expression. It was examined and found to be intact. The perineum was examined and was found to have a 1st degree labial tear. It was repaired with 2 Figure of 8 sutures using 0-vicryl. Good hemostasis was noted. EBL 100 cc
[2020-12-17] MEDS ORDERED: LACTATED RINGERS 1,000 ML IV SCH (04:00)
[2020-12-17] MEDS: ACETAMINOPHEN 500 MG TABLET PO PRN ×2 (04:27→14:15)
[2020-12-17] MEDS: IBUPROFEN 600 MG TABLET PO PRN ×3 (04:27→16:51)
[2020-12-18] MEDS: IBUPROFEN 600 MG TABLET PO PRN (08:51)
[2020-12-18] MEDS: ACETAMINOPHEN 500 MG TABLET PO PRN (08:51)
[2020-12-18] MEDS: DOCUSATE SODIUM 100 MG CAPSULE PO PRN ×2 (08:51→22:18)
--- NOTE | 2020-12-18 12:20 | PROVIDER PROGRESS NOTE ---
Subjective - Prog Note Date Prog Note Date: 12/18/20 Prog Note Time: 12:17 - Subjective Subjective: Patient is PPD#1. Baby staying in patient for bilirubin levels. Patient reports that her LLE varicosities have become hot, hard, red, and tender to palpation. Worse than prior to delivery. Worse of left more than right with varicosities present in both legs. Also reporting dysuria and suprapubic pain. Had a headache butit was relieved with pain medicine. Pain overall well controlled. Bleeding minimal. BF but supplementing with formula until milk comes in. Has been up amd ambulating and tolerating po. Voiding. Objective - Vital Signs/Intake & Output Reviewed Vital Signs: Yes Vital Signs: Vital Signs x48h Temp Pulse Resp BP Pulse Ox 12/18/20 11:46 98.1 F 68 18 102/65 100 12/18/20 08:00 98.1 F 73 16 93/58 L 100 12/18/20 05:39 97.7 F 62 20 108/66 100 Intake & Output: Intake & Output 12/15/20 12/16/20 12/17/20 12/18/20 23:59 23:59 23:59 23:59 Intake Total 2202.5 Balance 2202.5 - Objective General Appearance: positive: No acute distress Neck: positive: Nml inspection Cardiovascular: positive: Other (RR) Peripheral Pulses: 1+ Radial (R), 1+ Radial (L), 1+ Dorsalis pedis (R), 1+ Dorsalis pedis (L) Abdomen: positive: Other (S&NT.ND. FF below umbi) Skin: positive: Other (Area over LLE upper leg varicosities is purple, warm, TTP.) Extremities: positive: Pedal edema, Calf tenderness (Left side. Warmth, induration, erythema over varicosities, L>R.) Neurologic/Psychiatric: positive: Oriented x3 - Lab Results Fish Bones: 12/16/20 07:35 Assessment/Plan - Problem List (1) Normal vaginal delivery Impression: PPD#1 Having asymmetric leg sweeling with change in characteristics of LLE upper leg varicosities c/f VTE -Ordering stat us Dysuria: - Will attempt to collect urine culture -UA not likely to be meaningful with lochia Routine pp care other than as noted above Anticipate DC home in am Rh pos/Rub imm
--- NOTE | 2020-12-18 15:06 | Ultrasound Report ---
PROCEDURE: Duplex Ext Veins Left INDICATIONS: Hot hard red knots on left lower extremity, clinical concern for VTE/DVT TECHNIQUE: Real-time imaging, as well as color and pulse Doppler interrogation, were performed of the lower extr emity deep veins from the inguinal ligament to the popliteal fossa. COMPARISON: None. FINDINGS: The deep veins are normally compressible, and free of intraluminal thrombus. Color and pu lse Doppler demonstrate normal phasic intraluminal flow. There is normal augmentation response to di stal compression maneuver. Findings of superficial venous thrombosis can be seen involving the left mid thigh anteriorly, the le ft midline laterally, and lateral to the left knee. IMPRESSION: No findings of deep venous thrombosis are seen. Areas of superficial venous thrombosis can be seen. Note: Concordant preliminary findings given by the final assembly inspector upon the completion of the examination to nurse Sainz at 2:50 PM on 12/18/2020. Reviewed by: Dino Rios MD on 12/18/2020 2:05 PM SOTO Approved by: Dino Rois MD on 12/18/2020 2:05 PM SOTO Station ID: [id number]
--- NOTE | 2020-12-18 16:24 | PROVIDER PROGRESS NOTE ---
Subjective - Prog Note Date Prog Note Date: 12/18/20 Prog Note Time: 16:23 - Subjective Subjective: Multiple superficial venous thrombosis seen on dopplers Starting BID lvoenox Called Anuradhat and conformed coverage post discharge Objective - Vital Signs/Intake & Output Vital Signs: Vital Signs x48h Temp Pulse Resp BP Pulse Ox 12/18/20 15:46 98.4 F 70 18 107/67 99 12/18/20 11:46 98.1 F 68 18 102/65 100 Intake & Output: Intake & Output 12/15/20 12/16/20 12/17/20 12/18/20 23:59 23:59 23:59 23:59 Intake Total 2202.5 Balance 2202.5 - Lab Results Fish Bones: 12/16/20 07:35 Other Labs: Lab Results x24hrs 12/16/20 Range/Units 07:35 Crossmatch IS Only See Detail
[2020-12-18] MEDS: ENOXAPARIN 60 MG/0.6 ML SYRINGE SUBQ SCH (18:44)
[2020-12-19] MEDS: ENOXAPARIN 60 MG/0.6 ML SYRINGE SUBQ SCH (07:27)
[2020-12-19 08:19] VITALS: BP 117/72
[2020-12-19] MEDS: ACETAMINOPHEN 500 MG TABLET PO PRN (08:29)
[2020-12-19] MEDS: IBUPROFEN 600 MG TABLET PO PRN (08:29)
[2020-12-19] MEDS: DOCUSATE SODIUM 100 MG CAPSULE PO PRN (09:46)
--- NOTE | 2020-12-19 12:29 | Discharge Plan ---
Discharge Plan Problem Reviewed?: Yes Disposition: Home, Self Care Condition: Good Prescriptions: Acetaminophen [Acetaminophen Extra Strength] 1,000 mg PO Q8H PRN #60 tablet PRN Reason: Pain Docusate Sodium 100Mg Capsule [Colace 100Mg Capsule] 100 - 200 mg PO BID PRN #60 cap PRN Reason: Constipation Enoxaparin [Lovenox] 60 mg SUBQ Q12H #60 ml oxyCODONE [Roxicodone] 2.5 - 5 mg PO Q4H PRN #5 tablet PRN Reason: Severe Pain Instruction Topics: Enoxaparin injection, DVT Prevent Assessment: No puede keyshawn ibuprofeno con lovienox (inyeccin). Le he dado un pequeo nmero de tabletas de oxicodona que puede keyshawn en pamela de dolor intenso. Mientras tanto, puede usar acetaminofn para el manejo habitual del dolor. Additional Instructions or Follow Up instructions: [place] en la vagina rose 6 semanas: Sin relaciones sexuales, tampones, duchas vaginales requerir: -Fiebre superior a 100,5 -Dolor que no mejora con medicamentos para el dolor -Sangrado abundante en el que est remojando victorino almohadilla victorino hora rose 2 horas seguidas Ok para ducharse. No hay baeras o baeras de hidromasaje para 4 semanas No Smoking: If you smoke, Please STOP! Call for help. Follow-up with: Danni Meza MD [Primary Care Provider] -
--- NOTE | 2020-12-19 16:43 | Labor Flowsheet ---
Labor Flowsheet Datetime Report Generated by CPN: 12/19/2020 16:43 Datetime: 12/19/2020 07:37 VITAL SIGNS NBP Sys/Susannah/Mean (mmHg): 117 : 72 : 82 Pulse: 65 Datetime: 12/18/2020 11:50 SpO2 (%): 99 Datetime: 12/17/2020 05:15 Stage of : Recovery Datetime: 12/17/2020 04:12 Patient Care Comments: IV flushed and SL Datetime: 12/17/2020 04:00 Respirations: 22 Temperature (C): 37.1 Temperature Route: Axillary Datetime: 12/17/2020 03:25 LaborFlag: Labor Datetime: 12/17/2020 03:15 Membrane Comments: Placenta delivered spontaneous to disposal Datetime: 12/17/2020 03:13 Category: Category II Comments: Delivery!! PATIENT CARE Oxygen Method: Room Air Datetime: 12/17/2020 03:05 Contraction Comments: Pt pushing w cntxs-OB and Ped labor nurse and baby nurse at the bedside Datetime: 12/17/2020 03:04 Pain Presence: Intermittent Pain Type: Cramping Pain Location: Abdomen Pain Coping: Declines Medication or Epidural Patient Position/Activity: HOB Lowered Comfort Measures: Coaching Datetime: 12/17/2020 03:03 TEACHING Labor/Induction: Pushing Methods Datetime: 12/17/2020 03:00 UTERINE ACTIVITY Monitor Mode: External Monitor Interventions for UA: [place] Adjusted Frequency (min): 2-3 Quality: Moderate Duration (sec): 60-100 Pattern: Normal: <= 5 Contractions in 10 Minutes Resting Tone (Palpate): Relaxed ASSESSMENT A Monitor Mode: External US Monitor Interventions for FHR: Ultrasound Adjusted FHR Baseline Rate : 140 FHR Baseline Changes: No Baseline Change Variability: Moderate 6-25 bpm Accelerations: 10X10 Decelerations: Early; Variable Datetime: 12/17/2020 02:57 VAGINAL EXAM Dilatation (cm): 10.0 Station: 0 Vaginal Exam Comments: Mcsorely to the Bedside to SVE and deliv baby Datetime: 12/17/2020 02:53 Exam by: Maya Columba Cervix, Consistency: Soft Datetime: 12/17/2020 02:50 COMMUNICATION Communication: RN at Bedside Communication Comments: Pt called RN to bedside w urge to push Datetime: 12/17/2020 02:10 MEDICATIONS Pitocin (milliunits): Increased to @ Medication Comments: 4 m/U Datetime: 12/17/2020 00:45 Pain Relief Measures: Comfort Measures Datetime: 12/17/2020 00:15 Pain Assessment Comments: Pt resting on the bed breathing through cntxs-using nitrous Antibiotics: Ancef IV (Gm) @ Datetime: 12/16/2020 23:49 Membranes Ruptured Date/Time: 12/15/2020 10:04 Datetime: 12/16/2020 23:32 Notification Reason: Status Update; Patient Request Datetime: 12/16/2020 22:30 Pitocin Checklist: At Least 1 Acceleration of 15 bpm x 15 Seconds in 30 Minutes or Adequate Variabi lity; No More than 1 Late Deceleration Occurred in Past 30 Minutes; No More than 2 Variable Decelerat ions > 60 Seconds in Duration and decreasing >60 bpm in 30 minutes; No More than 5 Uterine Contractio ns in 10 Minutes for any 20 Minute Interval; Uterus Palpates Soft between Contractions Datetime: 12/16/2020 21:51 Provider Notified (Name): [facility]- Datetime: 12/16/2020 20:52 Provider Reviewed Strip: Yes Strip Reviewed by: Mcsorely Datetime: 12/16/2020 19:55 Breath Sounds, Left: Clear and Equal Datetime: 12/16/2020 19:49 MATERNAL ASSESSMENT Level of Consciousness: Alert Headache: Denies Nausea/Vomiting: Denies RUQ Epigastric Pain: Denies Datetime: 12/16/2020 18:26 I/O Interventions: Up to BR Datetime: 12/16/2020 17:31 PAIN Pain Scale: 5 Pain Goal: 10 Datetime: 12/16/2020 16:06 Cervix, Position: Posterior Datetime: 12/16/2020 14:49 Teaching Comments: POC discussed with pt vis mold chipper #[id number] Datetime: 12/16/2020 10:38 Hygiene: Fabiola Care Datetime: 12/16/2020 10:30 Amniotic Fluid Color: Heavy Meconium Datetime: 12/16/2020 10:29 Effacement (%): 80 Datetime: 12/16/2020 10:04 Membrane Status: Ruptured Membranes Rupture Method: Spontaneous Amniotic Fluid Amount: Moderate Amniotic Fluid Odor: None Datetime: 12/16/2020 10:00 Actions for Decelerations: Side to Side; Sterile Vaginal Exam; Provider Notified
--- NOTE | 2021-01-16 21:48 | DISCHARGE SUMMARY ---
Discharge Summary Admit Date: 12/16/20 Discharge Date: 12/19/20 Discharging Provider: Derrick Condition at Discharge: Good Discharge Disposition: 01 Home, Self Care - DIAGNOSES Admission Diagnoses: IUP at 40+5 wga Grand-multiparity Discharge Diagnoses with Status of Each Condition: Same and delivery of term gestation Superficial VTE of LLE Anticoagulation - HPI History of Present Illness: Patient is a 35 yo who presented at 40+5 days ega in early labor on 12/16/20. Initial exam at 7:14 was 5/60/-1 station. - HOSPITAL COURSE Hospital Course: STAGE I: Patient is a 35 yo who presented at 40+5 days ega in early labor on 12/16/20. Initial exam at 7:14 was 5/60/-1 station. She underwent spontaneous rupture of membranes at 10:04 with light meconium noted. GBS positive and received ampicillin for prophylaxis. Labor progress slowed and pitocin augmentation was initiated with max dose of 4 mU/min. Nitrous oxide for pain management. Cat I with periods of Cat II tracing throughout Stage I labor. Patient was completely dilated at 2:57 am on 12/17/20. STAGE II: Patient pushed well for 16 minuted to deliver a viable female infant from vertex and JAHAIRA position. There was a 90 second shoulder dystocia relieved with Travis and delivery of the posterior arm. A tight nuchal cord was noted and reduced over head. Infant was delivered to maternal chest, cord was clamped x2 without delay, and was brought over to the warmer to the Pediatric provider. Apgars were 7/9. Weight pending. STAGE III: Placenta delivered shortly after delivery of the with manual expression. It was examined and found to be intact. The perineum was examined and was found to have a 1st degree labial tear. It was repaired with 2 Figure of 8 sutures using 0-vicryl. Good hemostasis was noted. EBL 100 cc On PPD#1, patient noted some pain, warmth, and discoloration in the lateral aspect of her left leg and near her knee and into the popliteal fossa. She underwent lower extremitiy dopplers and was noted to have superficial VTE. She was started on Lovenox for anticoagulation. She was provided with instructions written in Indonesian for Lovenox 40 mg SC BID for3 months Called local pharmacy and ensured coverage and availability of medication. Discharge instructions provided in Indonesian. - ALLERGIES Allergies/Adverse Reactions: Allergies Allergy/AdvReac Type Severity Reaction Status Date / Time No Known Drug Allergies Allergy Verified 06/24/20 13:29 - MEDICATIONS Home Medications: Ambulatory Orders Medication Instructions Recorded Confirmed Pnv No.95/Ferrous Fum/Folic AC 1 tab PO DAILY #30 tablet 06/24/20 [ Tablet] Acetaminophen [Acetaminophen Extra 1,000 mg PO Q8H PRN #60 tablet 12/19/20 Strength] Docusate Sodium 100Mg Capsule 100 - 200 mg PO BID PRN #60 cap 12/19/20 [Colace 100Mg Capsule] Enoxaparin [Lovenox] 60 mg SUBQ Q12H #60 ml 12/19/20 oxyCODONE [Roxicodone] 2.5 - 5 mg PO Q4H PRN #5 tablet 12/19/20 - PHYSICAL EXAM AT DISCHARGE General Appearance: positive: No acute distress Respiratory: positive: No respiratory distress, Breath sounds nml Cardiovascular: positive: Regular rate & rhythm Peripheral Pulses: positive: 2+ Abdomen: positive: Other (FF below umbi, S&NT/ND) Skin: positive: Color nml Extremities: positive: Other (Area at left lateral aspect of the LLE decreased in TTP and rubor, decreased swelling ) Neurologic/Psychiatric: positive: Oriented x3 - LABS Result Diagrams: 12/16/20 07:35 - FOLLOW UP Follow Up: [address] Meza - TIME SPENT Time Spent in Discharge (Minutes): 45
== END 2020-12-19 16:37 | disposition home or self-care (01) | DRG 806 ==
LOC: WFO 06:32 → FBP 06:37 → WFO 07:27 → FBP 07:28
PROVIDERS: ADMIT Obstetrics & Gynecology; ATTEND Obstetrics & Gynecology
PROC: 10E0XZZ Delivery of Products of Conception, External Approach (ICD-10-PCS; principal; 2020-12-17)
PROC: 0HQ9XZZ Repair Perineum Skin, External Approach (ICD-10-PCS; 2020-12-17)
DX: O66.0 Obstructed labor due to shoulder dystocia (principal); O87.0 Superficial thrombophlebitis in the puerperium; Z37.0 Single live birth; O77.0 Labor and delivery complicated by meconium in amniotic fluid; O69.81X0 Labor and delivery complicated by cord around neck, without compression, not applicable or unspecified; O70.0 First degree perineal laceration during delivery; O99.824 Streptococcus B carrier state complicating childbirth; Z3A.40 40 weeks gestation of pregnancy; O90.89 Other complications of the puerperium, not elsewhere classified; R30.0 Dysuria
CPT/HCPCS: 36415; 85025; 86850; 86900; 86901; 86920; 87077; 87086; 87181; 93971; 99213; A9270; J1650; J7120

== ENCOUNTER 2023-04-29 08:00 | Outpatient (CLI) | payer MEDICAID ==
[2023-04-29 16:09] LABS: BILIRUBIN,URINE NEGATIVE (NEGATIVE); CLARITY,URINE HAZY (CLEAR); GLUCOSE, URINE (UA) NEGATIVE (NEGATIVE); KETONES,URINE (UA) TRACE mg/dL (NEGATIVE); LEUKOCYTE ESTERASE, URINE SMALL (NEGATIVE); NITRITE,URINE NEGATIVE (NEGATIVE); OCCULT BLOOD,URINE SMALL (NEGATIVE); PH,URINE 6.5 PH (5.0-7.5); PROTEIN,URINE NEGATIVE (NEGATIVE); UROBILINOGEN,URINE 0.2 (NORMAL) E.U./dL (NORMAL)
[2023-04-29 16:17] LABS: BACTERIA,URINE Few /HPF (None Seen); SQUAMOUS EPITHELIAL CELL,UR FEW Squamous (<= Few)
== END 2023-04-29 23:59 | disposition home or self-care (01) ==
LOC: LAB.WC 08:00
PROVIDERS: ATTEND Obstetrics & Gynecology
DX: O09.521 Supervision of elderly multigravida, first trimester (principal)
CPT/HCPCS: 81001; 87086

== ENCOUNTER 2023-05-23 08:00 | Outpatient (CLI) | payer MEDICAID ==
[2023-05-23 14:44] LABS: CHLAMYDIA TRACHOMATIS DNA NEGATIVE (NEGATIVE); NEISSERIA GONORRHOEAE DNA NEGATIVE (NEGATIVE); TRICHOMONAS VAGINALIS DNA NEGATIVE (NEGATIVE)
== END 2023-05-23 23:59 | disposition home or self-care (01) ==
LOC: LAB.WC 08:00
PROVIDERS: ATTEND Obstetrics & Gynecology
DX: O09.521 Supervision of elderly multigravida, first trimester (principal); Z11.3 Encounter for screening for infections with a predominantly sexual mode of transmission
CPT/HCPCS: 87491; 87591; 87661

== ENCOUNTER 2023-05-29 16:08 | Outpatient (CLI) | payer MEDICAID ==
--- NOTE | 2023-05-30 12:52 | Ultrasound Report ---
PROCEDURE: OB First Trimester w/TV INDICATIONS: POSITIVE TEST OUTSIDE/PRIOR DATING DATA: Last menstrual period (LMP): 02/28/2023. LMP-based estimated date of delivery (EDMUND): 12/05/2023. First dating scan (date and location): 05/29/2023. Estimated date of delivery (EDMUND) from first dating scan: 11/30/2023. TECHNIQUE: Real-time scanning was performed of the fetus and maternal pelvic organs, with image documentation. Endovaginal scanning was not performed. COMPARISON: None. FINDINGS: Intrauterine gestational sac present. Embryo: 7.49 cm, 13 weeks 4 days, 83rd percentile. Heart rate: 152 bpm. Other: No perigestational fluid collection. Measurement variability in dating: +/- 4 weeks by LMP, +/- 7 days by mean sac diameter (use before 6 weeks gestation if crown-rump length not able to be measured), +/- 5 days by crown-rump length (6-12 weeks gestation). Maternal organs: Ovaries not well visualized. IMPRESSION: Single living intrauterine at 13 weeks 4 days, EDMUND of 11/30/2023. Reviewed by: Abdias Walton on 05/30/2023 12:50 PM PST Approved by: Abdias Walton on 05/30/2023 12:50 PM PST Station ID: [id number]
== END 2023-05-29 16:09 | disposition home or self-care (01) ==
LOC: DI 16:08
PROVIDERS: ATTEND Obstetrics & Gynecology
DX: O09.521 Supervision of elderly multigravida, first trimester (principal); Z3A.13 13 weeks gestation of pregnancy

== ENCOUNTER 2023-06-19 14:40 | Outpatient (CLI) | payer MEDICAID ==
--- NOTE | 2023-06-19 15:28 | XRAY Report ---
PROCEDURE: Chest 2 View X-Ray INDICATIONS: CHRONIC COUGH TECHNIQUE: 2 views of the chest were acquired. COMPARISON: None. FINDINGS: Surgical changes and devices: None. Lungs and pleura: No pleural effusions or pneumothorax. Lungs are clear. Mediastinum: Mediastinal contours appear normal. Heart size is normal. Bones and chest wall: No suspicious bony lesions. Overlying soft tissues appear unremarkable. IMPRESSION: No acute cardiopulmonary process. Reviewed by: Rosa Rain MD on 06/19/2023 3:27 PM [facility] Approved by: Rosa Rain MD on 06/19/2023 3:27 PM [facility] Station ID: [id number]
== END 2023-06-19 14:41 | disposition home or self-care (01) ==
LOC: DI 14:40
PROVIDERS: ATTEND Obstetrics & Gynecology
DX: R05.3 Chronic cough (principal)

== ENCOUNTER 2023-07-18 14:40 | Outpatient (CLI) | payer MEDICAID ==
--- NOTE | 2023-07-18 19:15 | Ultrasound Report ---
PROCEDURE: OB Detailed Eval INDICATIONS: SUPERVISION OF OUTSIDE/PRIOR DATING DATA: Last menstrual period (LMP): 02/28/2023. LMP-based estimated date of delivery (EDMUND): 12/05/2023. First dating scan (date and location): 05/29/2023. Estimated date of delivery (EDMUND) from first dating scan: 11/30/2023. The below data below was generated using the ultrasound EDMUND of 11/30/2023 TECHNIQUE: Real-time scanning was performed of the fetus, with image documentation and biometric measurements. Endovaginal scanning: Not performed. COMPARISON: 05/29/2023 FINDINGS: General: A single living intrauterine gestation is present. Presentation: Vertex Placenta: Placental position is anterior, without previa. Amniotic fluid index: 17.5 cm, within normal limits for gestational age. This measures at the 78.5t h percentile. Largest vertical pocket measured 6.3 cm heart rate: 137 beats per minute. Maternal cervical canal: Maternal cervix appears visibly adequate and is closed. biometrics: Biparietal diameter: 4.75 cm, 20 weeks and 3 days, 65th percentile Head circumference: 18.0 cm, 20 weeks and 3 days, 62nd percentile Abdominal circumference: 16.2 cm, 21 weeks and 2 days, 83rd percentile Femur length: 3.46 cm, 20 weeks and 6 days, 73rd percentile Estimated gestational age from initial scan: 20 weeks and 0 days Composite gestational age from present scan: 20 weeks and 3 days Estimated weight and percentile: 392 g, 93rd percentile Measurement variability in biometric dating: +/- 10 days from 12-20 weeks gestation, +/- 2 weeks from 20-30 weeks gestation, +/- 3 weeks at 30 weeks gestation or later. Anatomic survey: Neuro: Ventricles are normal at less than 10 mm. Cisterna magna is normal at 3-11 mm. Cerebellum i s normal in size and morphology. Nuchal skin fold: Normal at less than 6 mm between 14 and 20 weeks gestational age. Face: Nose and lips, facial profile are normal. Spine: No evidence for spina bifida. Heart: 4-chambered heart is present, with normal ventricular outflow tracts. Diaphragm: Diaphragm is intact. Stomach: Left-sided stomach is present. Kidneys: No hydronephrosis. Normal is less than 5 mm in 2nd trimester, less than 7 mm in 3rd trimester. Cord: 3 vessel cord has orthotopic insertion. Bladder: Normal in size. Extremities: All 4 extremities are visualized. IMPRESSION: Single living intrauterine gestation with estimated sonographic gestational age of approximately 20 w eeks and 3 days. Normal interval growth has occurred. Estimated weight of approximately 392 g [facility] correlates with the 93rd percentile for gestational age. Normal routine second trimester anatomy screening survey. Reviewed by: Jose Avalos MD on 07/18/2023 7:14 PM PST Approved by: Jose Avalos MD on 07/18/2023 7:14 PM PST Station ID: [id number]
[2023-07-23 14:08] LABS: AFP MOM See interpretation. (.); AFP VALUE 101.9 ng/mL (.); GESTAT. AGE METHOD As provided (.); MATERNAL AGE AT EDD 37.7 yr (.); OPEN SPINA BIFIDA RISK 1 IN See interpretation. (.); RACE Other (.); RESULTS Report (.); TEST RESULTS See interpretation. (.)
== END 2023-07-18 14:41 | disposition home or self-care (01) ==
LOC: DI 14:40
PROVIDERS: ATTEND Obstetrics & Gynecology
DX: O09.92 Supervision of high risk pregnancy, unspecified, second trimester (principal); O09.521 Supervision of elderly multigravida, first trimester; Z3A.20 20 weeks gestation of pregnancy
CPT/HCPCS: 36415; 82105

== ENCOUNTER 2023-10-03 08:00 | Outpatient (CLI) | payer MEDICAID ==
[2023-10-03 16:36] LABS: BILIRUBIN,URINE NEGATIVE (NEGATIVE); GLUCOSE, URINE (UA) NEGATIVE (NEGATIVE); KETONES,URINE (UA) NEGATIVE (NEGATIVE); LEUKOCYTE ESTERASE, URINE NEGATIVE (NEGATIVE); NITRITE,URINE NEGATIVE (NEGATIVE); OCCULT BLOOD,URINE NEGATIVE (NEGATIVE); PROTEIN,URINE NEGATIVE (NEGATIVE); UROBILINOGEN,URINE 0.2 (NORMAL) E.U./dL (NORMAL)
[2023-10-03 16:59] LABS: BACTERIA,URINE Rare /HPF (None Seen); CLARITY,URINE CLEAR (CLEAR); RBC,URINE 0-5 /HPF (0-5); SQUAMOUS EPITHELIAL CELL,UR FEW Squamous (<= Few); WBC,URINE 0-3 /HPF (0-5)
== END 2023-10-03 23:59 | disposition home or self-care (01) ==
LOC: LAB.WC 08:00
PROVIDERS: ATTEND Obstetrics & Gynecology
DX: O09.522 Supervision of elderly multigravida, second trimester (principal)
CPT/HCPCS: 81001; 87086

== ENCOUNTER 2023-10-18 18:25 | Outpatient (CLI) | payer MEDICAID ==
--- NOTE | 2023-10-19 17:37 | Ultrasound Report ---
PROCEDURE: OB Follow up INDICATIONS: ELDERLY , EFW OUTSIDE/PRIOR DATING DATA: Last menstrual period (LMP): 02/28/2023. LMP-based estimated date of delivery (EDMUND): 12/05/2023. First dating scan (date and location): 05/29/2023. Estimated date of delivery (EDMUND) from first dating scan: 11/30/2023. The below data below was generated using the working EDMUND of 11/30/2023 TECHNIQUE: Real-time scanning was performed of the fetus, with image documentation and biometric measurements. Endovaginal scanning: Not performed. COMPARISON: 07/18/2023 FINDINGS: General: A single living intrauterine gestation is present. Presentation: Vertex Placenta: Placental position is anterior, without previa. Amniotic fluid index: 12.2 cm, within normal limits for gestational age. heart rate: 148 beats per minute. Maternal cervical canal: Not evaluated. biometrics: Biparietal diameter: 7.8 cm, 31 weeks, 4 days, 3.1% Head circumference: 30.78 cm, 34 weeks, 2 days, 25.2% Abdominal circumference: 28.41 cm, 32 weeks, 3 days, 15.5%. Femur length: 6.27 cm, 32 weeks, 3 days, 10.1% Estimated gestational age from initial scan: 33 weeks, 6 days Composite gestational age from present scan: 32 weeks, 5 days Estimated weight and percentile: 2000.5 g, 12.3% Measurement variability in biometric dating: +/- 10 days from 12-20 weeks gestation, +/- 2 weeks from 20-30 weeks gestation, +/- 3 weeks at 30 weeks gestation or more. biophysical profile score: tone: 2 out of 2 movement: 2 out of 2 Respiration: 2 out of 2 Largest pocket: 2 out of 2 IMPRESSION: 1. Single live intrauterine gestation with fetus in vertex presentation. heart rate is 148 bpm. Normal amount of amniotic fluid with MARCELINO measures 12.2 cm. Normal growth. Estimated weig ht is at 12.3%. 2. biophysical profile score is 8 out of 8. Reviewed by: Papo Mello MD on 10/19/2023 5:35 PM PDT Approved by: Papo Mello MD on 10/19/2023 5:35 PM PDT Station ID: [id number]
--- NOTE | 2023-10-19 17:45 | Ultrasound Report ---
PROCEDURE: OB Biophysical Profile INDICATIONS: SUPERVISION OF ELDERLY MULTIGRAVIDA OUTSIDE/PRIOR DATING DATA: Last menstrual period (LMP): 02/28/2023. LMP-based estimated date of delivery (EDMUND): 12/05/2023. First dating scan (date and location): 05/29/2023. Estimated date of delivery (EDMUND) from first dating scan: 11/30/2023. The below data below was generated using the working EDMUND of 11/30/2023 TECHNIQUE: Real-time scanning was performed of the fetus, with image documentation. Biophysical prof ile was also obtained. Endovaginal scanning: Not performed COMPARISON: None. FINDINGS: Biophysical profile: Tone: 2 points. Movement: 2 points. Respiration: 2 points. Largest pocket of fluid: 2 points. IMPRESSION: biophysical profile score is 8 out of 8. Reviewed by: Papo Gustafson MD on 10/19/2023 5:43 PM PDT Approved by: Papo Gustafson MD on 10/19/2023 5:43 PM PDT Station ID: [id number]
== END 2023-10-18 18:26 | disposition home or self-care (01) ==
LOC: DI 18:25
PROVIDERS: ATTEND Obstetrics & Gynecology
DX: O09.523 Supervision of elderly multigravida, third trimester (principal); Z3A.32 32 weeks gestation of pregnancy

== ENCOUNTER 2023-11-06 14:00 | Outpatient (CLI) | payer MEDICAID ==
[2023-11-06 14:19] VITALS: BP 101/78
--- NOTE | 2023-11-06 21:25 | PROCEDURE REPORT ---
- HPI Diagnosis/Indication for NST: Other (AMA) Current EDU 12/05/23 Gestation 35 Weeks and 6 Days 12 Para 11 Vital Signs Temperature 98.5 F 11/06/23 14:08 Heart Rate 83 11/06/23 14:08 Respiratory Rate 20 11/06/23 14:08 Blood Pressure 101/78 11/06/23 14:08 Temperature 98.5 F 11/06/23 14:08 Heart Rate 83 11/06/23 14:08 Respiratory Rate 20 11/06/23 14:08 Blood Pressure 101/78 11/06/23 14:08 O2 Saturation If not protocol: Oxygen Flow, liters/minute - NST Procedure NST Procedure Start Date 11/06/23 Start Time 14:05 Stop Time 14:25 Vibroacoustic Stimulation Used No Patient States Movement Yes - Results and Plan Findings/Impression: Reactive for of 32 weeks gestation or more. NST tracing contains at least two heart rate accelerations that are at least 15 beats per minute above the baseline rate and lasting at least 15 seconds from onset to return to baseline within a twenty minute period. Plan: care as scheduled
== END 2023-11-06 14:50 | disposition home or self-care (01) ==
LOC: WFO 14:00 → FBP 14:01 → WFO 14:50
PROVIDERS: ATTEND Obstetrics & Gynecology
DX: O09.523 Supervision of elderly multigravida, third trimester (principal); Z3A.35 35 weeks gestation of pregnancy
CPT/HCPCS: 59025

== ENCOUNTER 2023-11-13 08:00 | Outpatient (CLI) | payer MEDICAID | END 2023-11-13 23:59 | disposition home or self-care (01) | LOC: LAB.WC 08:00 | PROVIDERS: ATTEND Obstetrics & Gynecology | DX: Z36.85 Encounter for antenatal screening for Streptococcus B (principal) | CPT/HCPCS: 87797 ==

== ENCOUNTER 2023-11-20 14:45 | Outpatient (CLI) | payer MEDICAID ==
--- NOTE | 2023-11-20 15:48 | Ultrasound Report ---
PROCEDURE: OB Follow up INDICATIONS: SUPERVISION OF OUTSIDE/PRIOR DATING DATA: Last menstrual period (LMP): 03/06/2023. LMP-based estimated date of delivery (EDMUND): 12/05/2023. First dating scan (date and location): 05/29/2023. Estimated date of delivery (EDMUND) from first dating scan: 11/30/2023. The below data below was generated using the clinical EDMUND of 12/05/2023 TECHNIQUE: Real-time scanning was performed of the fetus, with image documentation and biometric measurements. Endovaginal scanning: Not performed. COMPARISON: 10/18/2023 FINDINGS: General: A single living intrauterine gestation is present. Presentation: Vertex Placenta: Placental position is anterior, without previa. Amniotic fluid index: 5.2 cm, at the lower limits of normal for gestational age. heart rate: 150 beats per minute. Maternal cervical canal: Not identified biometrics: Biparietal diameter: 8.7 cm, 35 weeks 0 days, 6% Head circumference: 32.9 cm, 37 weeks 3 days, 20% Abdominal circumference: 35 cm, 30 weeks 6 days, 89% Femur length: 6.7 cm, 34 weeks 4 days, 1.3% Estimated gestational age from initial scan: 37 weeks 6 days Composite gestational age from present scan: 36 weeks 3 days Estimated weight and percentile: 3169 g, 46 percentile Measurement variability in biometric dating: +/- 10 days from 12-20 weeks gestation, +/- 2 weeks from 20-30 weeks gestation, +/- 3 weeks at 30 weeks gestation or more. Other: Not applicable. IMPRESSION: Single live intrauterine consistent with 36 weeks and 3 days. Amniotic fluid index of 5.2 c m. Appropriate growth. Reviewed by: Montrell Tsai MD on 11/20/2023 3:46 PM PDT Approved by: Montrell Tsai MD on 11/20/2023 3:46 PM PDT Station ID: [id number]
== END 2023-11-20 14:46 | disposition home or self-care (01) ==
LOC: DI 14:45
PROVIDERS: ATTEND Obstetrics & Gynecology
DX: O09.523 Supervision of elderly multigravida, third trimester (principal); Z3A.36 36 weeks gestation of pregnancy

== ENCOUNTER 2023-11-20 15:28 | Outpatient (CLI) | payer MEDICAID ==
[2023-11-20 17:31] VITALS: BP 107/65
--- NOTE | 2023-11-20 21:24 | PROVIDER PROGRESS NOTE ---
- HPI Chief Complaint: Other (amniotic fluid of 5.4 on uls. AMA, sent over for monitoring.) Current : Current . recent cough. US today with marcelino of 5.4 EDU 12/05/23 Gestation 37 Weeks and 6 Days 12 Para 11 Vital Signs Temperature 98.2 F 11/20/23 15:33 Heart Rate 98 11/20/23 15:33 Respiratory Rate 16 11/20/23 15:33 Blood Pressure 107/65 11/20/23 15:33 Temperature 98.2 F 11/20/23 15:33 Heart Rate 98 11/20/23 15:33 Respiratory Rate 16 11/20/23 15:33 Blood Pressure 107/65 11/20/23 15:33 O2 Saturation If not protocol: Oxygen Flow, liters/minute - Procedures OB Procedure Performed: NST Diagnosis/Indication for NST: Oligohydramnios NST Procedure: NST Procedure Start Date 11/20/23 Start Time 15:40 Stop Time 16:50 Vibroacoustic Stimulation Used No Patient States Movement Yes Service Date of procedure: 11/20/23 Findings: Reactive for of 32 weeks gestation or more. NST tracing contains at least two heart rate accelerations that are at least 15 beats per minute above the baseline rate and lasting at least 15 seconds from onset to return to baseline within a twenty minute period. - Plan Plan: pateint evaluated and NST reactive. fluid only 5.4. discharged home, encouraged to drink lots of fluids and return tomorrow for repeat NST and MARCELINO check. patient is willing and her ride is willing to bring her.
== END 2023-11-20 17:15 | disposition home or self-care (01) ==
LOC: WFO 15:28 → FBP 15:29 → WFO 17:15
PROVIDERS: ATTEND Obstetrics & Gynecology
DX: O41.03X0 Oligohydramnios, third trimester, not applicable or unspecified (principal); Z3A.37 37 weeks gestation of pregnancy
CPT/HCPCS: 59025

== ENCOUNTER 2023-11-21 14:58 | Outpatient (CLI) | payer MEDICAID ==
[2023-11-21 15:38] VITALS: BP 110/51; O2SAT 99
--- NOTE | 2023-11-21 17:07 | Ultrasound Report ---
PROCEDURE: OB Limited INDICATIONS: MARCELINO OUTSIDE/PRIOR DATING DATA: Last menstrual period (LMP): 02/28/2023. LMP-based estimated date of delivery (EDMUND): 12/05/2023. First dating scan (date and location): 05/29/2023. Estimated date of delivery (EDMUND) from first dating scan: 11/30/2023. The below data below was generated using the working EDMUND of 12/05/2023 TECHNIQUE: Real-time scanning was performed of the fetus, with image documentation. Endovaginal scanning: Not indicated COMPARISON: 11/20/2023, 10/18/2023 and 07/18/2023 FINDINGS: A single living intrauterine gestation is present. Presentation: Vertex Placenta: Placental position is anterior, without previa. Amniotic fluid index: 8.9 cm, normal for gestational age. heart rate: 164 beats per minutes. Maternal cervical canal: Not evaluated. Estimated gestational age from initial scan: 38 weeks, 0 day. IMPRESSION: 1. Single live intrauterine gestation with fetus in vertex presentation. heart rate is 164 bpm. 2. Normal MARCELINO at 8.9 cm and the largest pocket measures 2.6 cm. Reviewed by: Papo Mello MD on 11/21/2023 5:06 PM PDT Approved by: Papo Mello MD on 11/21/2023 5:06 PM PDT Station ID: [id number]
--- NOTE | 2023-11-22 08:55 | PROVIDER PROGRESS NOTE ---
- HPI Chief Complaint: Other (grand multiparity, AMA, low fluid yesterday) Current : Current EDU 12/05/23 Gestation 38 Weeks and 0 Days 12 Para 11 Vital Signs Temperature 98.4 F 11/21/23 15:10 Heart Rate 120 H 11/21/23 15:10 Respiratory Rate 17 11/21/23 15:10 Blood Pressure 110/51 L 11/21/23 15:10 O2 Saturation 99 11/21/23 15:10 Temperature 98.4 F 11/21/23 15:19 Heart Rate 120 H 11/21/23 15:10 Respiratory Rate 17 11/21/23 15:10 Blood Pressure 110/51 L 11/21/23 15:10 O2 Saturation 99 11/21/23 15:10 If not protocol: Oxygen Flow, liters/minute - Procedures OB Procedure Performed: NST Diagnosis/Indication for NST: Other (as above) NST Procedure: NST Procedure Start Date 11/21/23 Start Time 15:10 Stop Time 15:36 Vibroacoustic Stimulation Used No Patient States Movement Yes Procedure Details: Reactive for of 32 weeks gestation or more. NST tracing contains at least two heart rate accelerations that are at least 15 beats per minute above the baseline rate and lasting at least 15 seconds from onset to return to baseline within a twenty minute period. Findings: reactive NST. US done and MARCELINO 8.9 cm. biggest pocket 2.8 cm. - Plan Plan: follow up on Saturday for office visit and NST
== END 2023-11-21 17:09 | disposition home or self-care (01) ==
LOC: WFO 14:58 → FBP 15:16 → WFO 17:09
PROVIDERS: ATTEND Obstetrics & Gynecology
DX: O09.523 Supervision of elderly multigravida, third trimester (principal); Z3A.38 38 weeks gestation of pregnancy
CPT/HCPCS: 59025

== ENCOUNTER 2023-11-26 08:47 | Outpatient (CLI) | payer MEDICAID | END 2023-11-26 08:48 | disposition home or self-care (01) | LOC: LAB.N 08:47 | DX: R05.3 Chronic cough (principal) | CPT/HCPCS: 81599 ==

== ENCOUNTER 2023-11-27 13:36 | Outpatient (CLI) | payer MEDICAID ==
[2023-11-27 14:27] VITALS: BP 115/70; O2SAT 98
--- NOTE | 2023-11-27 14:35 | PROCEDURE REPORT ---
- HPI Diagnosis/Indication for NST: Other (AMA, grand multip) Vital Signs Temperature 98.1 F 11/27/23 14:08 Temperature 98.2 F 11/27/23 14:25 Heart Rate 87 11/27/23 14:25 Respiratory Rate 17 11/27/23 14:25 Blood Pressure 115/70 11/27/23 14:25 O2 Saturation 98 11/27/23 14:25 If not protocol: Oxygen Flow, liters/minute - NST Procedure NST Procedure Start Time 15:10 Stop Time 15:36 - Results and Plan Findings/Impression: Reactive for of less than 32 weeks gestation. NST tracing contains at least two heart rate accelerations that are at least 10 beats per minute above the baseline rate and lasting at least 10 seconds from onset to return to baseline within a twenty minute period. Plan: visits as scheduled.
== END 2023-11-27 14:40 | disposition home or self-care (01) ==
LOC: WFO 13:36 → FBP 13:55 → WFO 14:40
PROVIDERS: ATTEND Obstetrics & Gynecology
DX: O09.523 Supervision of elderly multigravida, third trimester (principal); O09.43 Supervision of pregnancy with grand multiparity, third trimester
CPT/HCPCS: 59025

== ENCOUNTER 2023-12-03 17:31 | Inpatient (IN) | payer MEDICAID ==
[2023-12-03] MEDS ORDERED: miSOPROStoL 200 MCG TABLET ONE (17:36)
[2023-12-03] MEDS ORDERED: CARBOPROST TROMETHAMINE 250 MCG/ML VIAL IM ONE (17:36)
[2023-12-03] MEDS ORDERED: METHYLERGONOVINE 0.2 MG/ML VIAL ONE (17:36)
[2023-12-03] MEDS ORDERED: CARBOPROST TROMETHAMINE 250 MCG/ML VIAL IM PRN (17:38)
[2023-12-03] MEDS ORDERED: miSOPROStoL 200 MCG TABLET BC PRN (17:38)
[2023-12-03] MEDS ORDERED: fentaNYL 100 MCG/2 ML VIAL IVP PRN (17:38)
[2023-12-03] MEDS ORDERED: NIFEdipine 10 MG CAPSULE PO PRN (17:38)
[2023-12-03] MEDS ORDERED: hydrALAZINE INJ 20 MG/ML VIAL IVP PRN ×2 (17:38)
[2023-12-03] MEDS ORDERED: TERBUTALINE 1 MG/ML VIAL SUBQ PRN (17:38)
[2023-12-03] MEDS ORDERED: TRANEXAMIC ACID IN NACL 1,000 MG/100 ML BAG IV PRN (17:38)
[2023-12-03] MEDS ORDERED: OXYTOCIN 10 UNIT/ML VIAL IM PRN (17:38)
[2023-12-03] MEDS ORDERED: SODIUM CHLORIDE FLUSH 0.9% 10 ML SYRINGE IVP PRN (17:38)
[2023-12-03] MEDS ORDERED: lidocaine 1% 20 ML MDV ID PRN (17:38)
[2023-12-03] MEDS ORDERED: METHYLERGONOVINE 0.2 MG/ML VIAL IM PRN (17:38)
[2023-12-03] MEDS ORDERED: miSOPROStoL 200 MCG TABLET PR PRN (17:38)
[2023-12-03] MEDS ORDERED: LABETALOL 20 MG/4 ML SYRINGE IVP PRN ×3 (17:38)
[2023-12-03] MEDS ORDERED: LACTATED RINGERS 1,000 ML IV SCH ×2 (18:00→23:45)
[2023-12-03] MEDS ORDERED: SODIUM CHLORIDE FLUSH 0.9% 10 ML SYRINGE IVP SCH (18:00)
[2023-12-03 18:05] LABS: BASOPHILS % (AUTO) 0.4 %; EOSINOPHILS # (AUTO) 0.1 10^3/uL (0.0-0.7); EOSINOPHILS % (AUTO) 1.9 %; HCT - HEMATOCRIT 37.3 % (37.0-47.0); HGB - HEMOGLOBIN 11.8 g/dL (12.0-16.0); LYMPHOCYTES # (AUTO) 1.9 10^3/uL (1.5-3.5); LYMPHOCYTES % (AUTO) 24.9 %; MEAN CORPUSCULAR HEMOGLOBIN 27.1 pg (27.0-31.0); MEAN CORPUSCULAR HGB CONC 31.6 g/dL (32.0-36.0); MEAN CORPUSCULAR VOLUME 85.6 fL (81.0-99.0); MEAN PLATELET VOLUME 11.7 fL (7.9-10.8); MONOCYTES # (AUTO) 0.3 10^3/uL (0.0-1.0); MONOCYTES % (AUTO) 4.5 %; NEUTROPHILS # (AUTO) 5.1 10^3/uL (1.5-6.6); PLT - PLATELET COUNT 318 10^3/uL (130-450); RED BLOOD COUNT 4.36 10^6/uL (4.20-5.40); RED CELL DISTRIBUTION WIDTH 13.7 % (12.0-15.0); WHITE BLOOD COUNT 7.5 x10^3/uL (4.8-10.8)
--- NOTE | 2023-12-03 19:56 | HISTORY & PHYSICAL EXAMINATION ---
Admit History - Visit Reason Visit Reason: Contractions, Membranes rupture - : 12 Parity: 11 Smoking Status: Never smoker - Mother's Labs Mother's Blood Type: positive: O Mother's RH: positive: Positive GBS: positive: Group B Step Negative Rubella Status: positive: Immune - Other Maternal History Other Maternal History: HPI: Patient is a 38-year-old at 39 weeks 5 days gestation presented with contractions and leaking fluid. She says her water broke shortly before arrival in the car on the way here.. She has good movement.No MALIK/BV or RUQP. No vaginal bleeding. Denies nausea and vomiting. Denies urinary urgency or dysuria. All other symptoms reviewed and were negative except per HPI. Course LMP: 02/28/23 EDMUND by LMP: 12/05/23 US: 05/29/2023 w/ EDMUND pof 11/30/2023 Final EDMUND: 12/05/2023 SPEAKS TRIQUI, no Frisian skill. 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 it helps to give her hard copies of prescriptions. Marquito 38 yo . BMI 33 UTI in early - macrobid sent. Rescreen negative 10/02 History of superficial LLE VTE. No testing performed. no thromboprophylaxis needed as superficial AMA: NIPT wnl, AFP neg - not taking ASA surveillance at 36. Agrees to weekly NST after visits. EFW at 32 weeks show 2000 g, 12.3%, notably BPD 3.1%. 11/19 EFW 3169 g, 46%tile, vertex, MARCELINO 5.2cm, repeated on 11/20 and 8.9cm Declines IOL at 38wk visit. Grand multiparity: HIgh risk for hemorrhage - taking calcium - and iron. COUGH Taking albuterol as needed CXR unremarkable Symptoms waxing and waining So far medications have not worked, wants to try allergy medication, so cetirizi ne sent. Pre- Weight:152 BMI: 33.01 Blood type: O + Antibody: Negative CBC: PLT: 343 HCT 36.0 HGB 12.3 RUB: 62 VZV: Immune HBsAg: Negative HepC: NR RPR/AB-EIA: NR HIV: NR PAP:04/16/2018 GC/CT:05/22/23 Negative HSV: Denies in self and partner Genetic testing: NIPT negative, AFP negative. Covid: Declined Flu:Declined FAS: Placenta:Anterior w/o previa Cord:3VC MARCELINO:17.5 EFW:392g 93rd%ile 50gm OGCT: declines to do TDAP: 09/11 Breast Pump: 09/11 3rd trimester H/H PLT declines to do. is taking iron GBS: Negative Delivery plan: Contraception: Gave handout. PMH Anemia History of superficial venous thrombosis Grand multiparity PSH Denies previous surgeries OB History Limited records from deliveries in [place]. 1. 40 weeks , [place] 2 40 weeks , [place] 3 40 weeks , [place] 4. 40 weeks , [place] 5. 40 weeks , [place] 6. 40 weeks , [place] 7 40 weeks , [place] 8. 40 weeks , [place] 9.02/13/2018 40 weeks 2 days, , [facility], female, rapid delivery 10. 04/27/2019, 40 weeks 1 day, , [facility], male, rapid delivery 11. 5 2 9021, 40 weeks 6 days, , [facility], female augmentation Denies tobacco, alcohol, drugs Family History Denies pertinent Allergies No known drug allergies Medications vitamins Ferrous sulfate Albuterol Physical exam: General: Alert, oriented, no acute distress Head: Normal cephalic atraumatic Eyes: PERRLA, extraocular motions intact. Respiratory: Normal rate of respiration. No accessory muscle use, normal respiratory effort. Cardiovascular: Regular rate and rhythm Abdomen: Gravid, nontender, nondistended Extremities: Normal range of motion Neuro: Oriented x3. Normal movements Psych: Appropriate mood and affect. Normal judgment and insight SVE: /-3 FHT: Start this 1953 no decelerations. [place]: 2-5, although difficult to trace Plan Term labor/SROM -Admit to L&D, admit labs -Anticipate , will augment if necessary. -Epidural at patient's request. 39 weeks gestation Grand multiparity -Blood type and crossed. - NST Procedure NST Procedure Start Time 13:55 Stop Time 14:40 Meds/Allgy - Home Medications Home Medications: Ambulatory Orders Medication Instructions Recorded Confirmed Pnv No.95/Ferrous Fum/Folic AC 1 tab PO DAILY #30 tablet 06/24/20 [ Tablet] Acetaminophen [Acetaminophen Extra 1,000 mg PO Q8H PRN #60 tablet 12/19/20 Strength] Docusate Sodium 100Mg Capsule 100 - 200 mg PO BID PRN #60 cap 12/19/20 [Colace 100Mg Capsule] Enoxaparin [Lovenox] 60 mg SUBQ Q12H #60 ml 12/19/20 oxyCODONE [Roxicodone] 2.5 - 5 mg PO Q4H PRN #5 tablet 12/19/20 Albuterol Sulfate [Proventil Hfa] 6.7 gm IH Q6H PRN #6.7 gm 02/11/23 Benzonatate [Tessalon] 200 mg PO QID PRN #20 cap 02/11/23 methylPREDNISolone [Medrol Dose 1 each PO DAILY 6 Days #1 each 02/11/23 Pack] - Allergies Allergies/Adverse Reactions: Allergies Allergy/AdvReac Type Severity Reaction Status Date / Time No Known Drug Allergies Allergy Verified 04/18/23 16:43 Plan for Labor - Plan For Labor I expect patient to be DC'd or transferred within 96 hours.: Yes
--- NOTE | 2023-12-03 20:46 | PROVIDER PROGRESS NOTE ---
Labor Progress Note - Uterine Monitoring Uterine Monitoring Mode: positive: External toco Contraction Frequency (min/apart): Difficult to wilmar Contraction Intensity: positive: Moderate to strong - Monitoring Monitor Mode: positive: External ultrasound Heart Rate Baseline: 150 Heart Rate Variability: positive: Minimal (0-5 bpm) Accelerations: positive: Absent Decelerations: positive: Late, Intermittent (<50% x20 min) Strip Review: positive: Category II - Vaginal Exam Dilation (in cm): 8 Effacement (%): 50 Station: -2 - Labor Progress Note Labor Progress Note/Additional Text: Patient not progressing and hesitant to start oxytocin. Had a long conversation via warp trucker about heart tracings and worrisome features. No ac celerations for quite some time and more frequent late decelerations. Discussed worrisome prognosis if she does not progress. Given her dilation, membrane rupture, and multiparous. Did agree to oxytocin eventually.
[2023-12-03] MEDS: OXYTOCIN/SODIUM CHLORIDE 500 ML IV PRN (20:52)
[2023-12-03] MEDS: LACTATED RINGERS 1,000 ML IV PRN (20:53)
[2023-12-03] MEDS ORDERED: OXYTOCIN/SODIUM CHLORIDE 500 ML IV SCH (21:00)
--- NOTE | 2023-12-03 21:39 | PROVIDER PROGRESS NOTE ---
Labor Progress Note - Uterine Monitoring Uterine Monitoring Mode: positive: External toco Contraction Frequency (min/apart): 5-6 Contraction Intensity: positive: Moderate to strong - Monitoring Monitor Mode: positive: External ultrasound Heart Rate Baseline: 145 Heart Rate Variability: positive: Moderate (6-25 bmp) Accelerations: positive: Absent Decelerations: positive: Variable, Intermittent (<50% x20 min) Strip Review: positive: Category II - Labor Progress Note Labor Progress Note/Additional Text: Unchanged, but only recently started oxytocin, still increasing. Did discuss section briefly, but trying to avoid. Did have some accelerations previously. Contractions better traced. If they become difficult to trace, will consider internal monitors.
[2023-12-03] MEDS ORDERED: CALCIUM CARBONATE CHEW 500 MG TABLET PO PRN (23:29)
[2023-12-03] MEDS ORDERED: ONDANSETRON 4 MG/2 ML VIAL IVP PRN (23:29)
[2023-12-03] MEDS ORDERED: SIMETHICONE CHEW 80 MG TABLET PO PRN (23:29)
--- NOTE | 2023-12-03 23:29 | DELIVERY NOTE ---
Delivery Note - Labor Labor: positive: Augmented by oxytocin - Delivery Method Delivery Method: positive: Spontaneous vaginal delivery - Presentation Presentation: positive: OA - occiput anterior - Nuchal Cord Nuchal Cord: positive: None - Amniotic Fluid Description Amniotic Fluid Description: positive: Light meconium - Laceration Laceration: positive: None - Delivery Outcome Delivery Outcome: positive: Livebirth - : positive: Placed in direct skin contact with mother, [place] used, Warmer used [place] sex: positive: Female - Cord Cord: positive: 3 vessels - Placenta Placenta: positive: Intact - Estimated Blood Loss Estimated Blood Loss (in cc): 200 - Post Delivery Events Post Delivery Events: positive: No post delivery events - Delivery Comments (Free Text/Narrative) Delivery Comments (Free Text/Narrative): Preoperative Diagnoses 39 weeks gestation Grand multiparity Term labor/SROM Postoperative Diagnoses Same Delivery of king Status post spontaneous vaginal delivery Summary Patient presented at 39 weeks gestation in active labor after spontaneous rupture of membranes in the car on the way to the hospital. She was checked and found to be 8 centimeters with a dynamic cervix, but did not make change. She had an intermittent category 2 tracing that became persistent and was counseled on oxytocin which she was hesitant to start, but after long discussion agreed to initiate. She had slower than expected progression, but as oxytocin was increased, she progressed to complete and started pushing spontaneously. Delivery Summary: Patient was placed in the dorsal lithotomy position. Upon maternal pushing the head was delivered atraumatically followed by the anterior shoulder, posterior shoulder, then the remainder of the 's body. A female was delivered with APGARS of 7 at 1 minute and 8 at 5 minutes. The infant was placed on its mother's chest . After the cord finished pulsating, the umbilical cord was clamped times two and cut. The placenta delivered intact with three vessel cord. Placenta was not sent to pathology. Thirty units of Pitocin were added to the IV fluid and allowed to run freely. Uterine massage was performed until uterus was deemed firm. Upon inspection of the perineum, vagina and cervix were intact. Upon re- inspection the patient was hemostatic. Uterus again massaged and found to be firm. Needle and sponge counts were correct. Patient was stable and allowed to recover in L&D room. was stable and remained in room with mother. weight is pending at this time.
[2023-12-04] MEDS: IBUPROFEN 600 MG TABLET PO SCH (01:11)
[2023-12-04] MEDS: DOCUSATE SODIUM 100 MG CAPSULE PO PRN (08:58)
[2023-12-04] MEDS: ACETAMINOPHEN 500 MG TABLET PO SCH (09:29)
--- NOTE | 2023-12-04 10:53 | PHARMACY PROGRESS NOTE ---
- Best Possible Medication History Admit Date and Time: 12/03/23 1740 Processed by: Pharmacy Medications reviewed in ED?: No Medication History completed: Yes Patient Interview: Pt unable to participate Secondary Source(s): Physician records, Insurance records As the person ultimately responsible for medication therapy, providers are able to order a medication from an existing home medication list in [facility] via the "Reconcile Routine" prior to Confirmation of that medication by ground support equipment assembler. Such practice is discouraged except when the physician, in their clinical judgment, deems that a medical need exists for a medication without regard to previous use.
--- NOTE | 2023-12-04 12:48 | PROVIDER PROGRESS NOTE ---
Subjective - Prog Note Date Prog Note Date: 12/04/23 Prog Note Time: 12:46 - Subjective Subjective: Visit conducted with telephone Tajik interpretor (Pantera). Jeanne reports she is feeling well, no concerns. She is urinating spontaneously and ambulating without difficulty. Reports mild cramping. Reports lochia is normal. She is . Objective - Vital Signs/Intake & Output Reviewed Vital Signs: Yes Vital Signs: Vital Signs x48h Temp Pulse Resp BP Pulse Ox 12/04/23 08:00 98.2 F 80 16 97/46 L 97 Intake & Output: Intake & Output 12/01/23 12/02/23 12/03/23 12/04/23 23:59 23:59 23:59 23:59 Intake Total 11.133 488.867 Output Total 500 Balance 11.133 -11.133 - Objective General Appearance: positive: No acute distress Abdomen: positive: Non-tender, Other (Fundus firm) Extremities: positive: No pedal edema Neurologic/Psychiatric: positive: Mood/affect nml - Lab Results Fish Bones: 12/03/23 17:35 Other Labs: Lab Results x24hrs 12/03/23 12/03/23 Range/Units 17:35 17:35 WBC 7.5 (4.8-10.8) x10^3/uL RBC 4.36 (4.20-5.40) 10^6/uL Hgb 11.8 L (12.0-16.0) g/dL Hct 37.3 (37.0-47.0) % MCV 85.6 (81.0-99.0) fL MCH 27.1 (27.0-31.0) pg MCHC 31.6 L (32.0-36.0) g/dL RDW 13.7 (12.0-15.0) % Plt Count 318 (130-450) 10^3/uL MPV 11.7 H (7.9-10.8) fL Neut # (Auto) 5.1 (1.5-6.6) 10^3/uL Lymph # (Auto) 1.9 (1.5-3.5) 10^3/uL [place] # (Auto) 0.3 (0.0-1.0) 10^3/uL Eos # (Auto) 0.1 (0.0-0.7) 10^3/uL Baso # (Auto) 0.0 (0.0-0.1) 10^3/uL Absolute Nucleated RBC 0.00 x10^3/uL Nucleated RBC % 0.0 /100WBC Blood Type O POSITIVE Antibody Screen NEGATIVE Crossmatch IS Only See Detail Assessment/Plan - Problem List (1) Normal vaginal delivery Impression: Continue routine care. Plan for discharge home tomorrow.
[2023-12-04 16:24] VITALS: O2SAT 98
--- NOTE | 2023-12-05 12:45 | DISCHARGE SUMMARY ---
Discharge Summary Admit Date: 12/03/23 Discharge Date: 12/05/23 Discharging Provider: Calin Zendejas MD Code Status: Attempt Resuscitation Condition at Discharge: Good Discharge Disposition: 01 Home, Self Care - DIAGNOSES Admission Diagnoses: Grand multiparity SROM Labor Discharge Diagnoses with Status of Each Condition: Same - HPI History of Present Illness: Visit conducted using video Kyrgyz interpretor. Jeanne is feeling well. Lochia reported as normal. She is ambulating and urinating without difficulty. Pain is well controlled. She is . - HOSPITAL COURSE Hospital Course: Jeanne is a 38 yo who presented at 39w5d with SROm and contractions and was admitted for management of labor. Labor was augmented with pitocin. She had an uncomplicated with an EBL of 200cc. course uncomplicated. - ALLERGIES Allergies/Adverse Reactions: Allergies Allergy/AdvReac Type Severity Reaction Status Date / Time No Known Drug Allergies Allergy Verified 04/18/23 16:43 - MEDICATIONS Home Medications: Ambulatory Orders Medication Instructions Recorded Confirmed Pnv No.95/Ferrous Fum/Folic AC 1 tab PO DAILY #30 tablet 06/24/20 12/04/23 [ Tablet] Albuterol Sulfate [Proventil Hfa] 2 puffs IH TID 12/04/23 12/04/23 Cetirizine [ZyrTEC] 10 mg PO DAILY 12/04/23 12/04/23 Ipratropium/Albuterol [Duoneb] 3 ml INH Q4H PRN 12/04/23 12/04/23 Acetaminophen [Tylenol] 650 mg PO Q6H PRN #30 tab 12/05/23 Docusate Sodium 100Mg Capsule 100 mg PO BID PRN 14 Days #28 cap 12/05/23 [Colace 100Mg Capsule] Ibuprofen [Motrin] 600 mg PO Q6H PRN #30 tab 12/05/23 - PHYSICAL EXAM AT DISCHARGE General Appearance: positive: No acute distress Respiratory: positive: No respiratory distress Abdomen: positive: Non-tender, Other (Fundus firm.) Extremities: positive: No pedal edema, Other (No evidence of DVT) - LABS Result Diagrams: 12/03/23 17:35 - FOLLOW UP Follow Up: 1 week.
[2023-12-05 12:59] VITALS: BP 104/70
--- NOTE | 2023-12-05 15:23 | Labor Flowsheet ---
Labor Flowsheet Datetime Report Generated by CPN: 12/05/2023 15:23 Datetime: 12/05/2023 12:51 VITAL SIGNS NBP Sys/[place]/Mean (mmHg): 104 : 67 : 74 Pulse: 89 Datetime: 12/05/2023 04:51 Membranes Ruptured Date/Time: 12/03/2023 17:00 Membranes Rupture Method: Spontaneous Amniotic Fluid Color: Light Meconium Amniotic Fluid Amount: Moderate Amniotic Fluid Odor: None Datetime: 12/03/2023 22:48 VAGINAL EXAM Dilatation (cm): 9.0 Exam by: K Marquez Datetime: 12/03/2023 22:46 COMMUNICATION Communication: Call/Page Placed to Provider Provider Notified (Name): Marquez Communication Comments: Request to present call Datetime: 12/03/2023 22:30 UTERINE ACTIVITY Monitor Mode: External Frequency (min): 2-3 Quality: Strong Duration (sec): 50-100 Pattern: Normal: <= 5 Contractions in 10 Minutes Resting Tone (Palpate): Relaxed FHR Baseline Rate : 145 Variability: Moderate 6-25 bpm Accelerations: None Decelerations: Early; Late Category: Category II Datetime: 12/03/2023 21:59 ASSESSMENT A Monitor Mode: Telemetry STAGE 2 Pushing: Urge to Push; Involuntary Pushing Datetime: 12/03/2023 21:30 Comments: tracing maternal hr due to pt sitting on toilet Datetime: 12/03/2023 20:30 Temperature (C): 36.7 Datetime: 12/03/2023 20:00 Patient Care Comments: pt ambulating, underwriting assistant, md, psych arnp at bedside Datetime: 12/03/2023 19:20 Station: -2 Datetime: 12/03/2023 19:00 Monitor Interventions for UA: [place] Adjusted Monitor Interventions for FHR: Ultrasound Adjusted PATIENT CARE Oxygen Method: Room Air Datetime: 12/03/2023 17:41 Membrane Status: Ruptured Datetime: 11/27/2023 14:44 SpO2 (%): 99
== END 2023-12-05 15:22 | disposition home or self-care (01) | DRG 807 ==
LOC: WFO 17:31 → FBP 17:31 → WFO 17:39 → FBP 17:40
PROVIDERS: ADMIT Obstetrics & Gynecology; ATTEND Obstetrics & Gynecology
PROC: 10E0XZZ Delivery of Products of Conception, External Approach (ICD-10-PCS; principal; 2023-12-03)
DX: O76 Abnormality in fetal heart rate and rhythm complicating labor and delivery (principal); Z37.0 Single live birth; O99.892 Other specified diseases and conditions complicating childbirth; R05.9 Cough, unspecified; Z3A.39 39 weeks gestation of pregnancy
CPT/HCPCS: 59409; 85025; 86850; 86900; 86901; 86920; A9270; J2210; J7120